=== PATIENT | female | born 1955 | race Caucasian/White ===

== ENCOUNTER 2019-10-02 15:26 | Emergency (ER) | payer BC, SELFPAY ==
--- NOTE | ~2019-10-02 | XR_ITS ---
XR finger 5th RT min 2V 10/02/2019 16:13 INDICATION: Right fifth finger pain PROCEDURE: 5 views right fifth finger COMPARISON: No prior studies for comparison. FINDINGS: Fracture, dislocation or subluxation is not identified. There is mild polyarticular osteoar thritis of the interphalangeal joints. There is healed fifth metacarpal fracture. The soft tissues ap pear within normal limits. No foreign bodies are identified. IMPRESSION: 1: NO ACUTE BONE OR JOINT ABNORMALITY IDENTIFIED. Reviewed, dictated and finalized at location A. R WRAPPER
[2019-10-02 15:35] VITALS: BP 219/86; PULSE 83; RESP 18; TEMP 36.6; O2SAT 99
[2019-10-02 15:48] VITALS: BP 196/108
--- NOTE | 2019-10-02 16:02 | ED.UPPEXIN ---
HPI - Extremity Injury (Upper) General Chief Complaint: Extremity Injury, Upper Stated Complaint: R FINGER INJURY Time Seen by Provider: 10/02/19 15:55 Source: patient and RN notes reviewed Mode of arrival: ambulatory Limitations: no limitations History of Present Illness HPI narrative: Patient presents today complaining of redness, swelling, and pain to the right fifth finger x1 month. States that she had a mild crush injury between 2 logs prior to onset of symptoms, but this injury did not cause a break in the skin. Denies numbness or tingling in the finger. Denies pain at rest, but this slightly increases with movement or palpation. She has been occasionally taking ibuprofen for symptoms. Patient's blood pressure is quite elevated upon arrival. She denies hx of HTN. Denies any symptoms to include chest pain, shortness of breath, dizziness, lightheadedness, headache, vision changes. MD complaint: injury to: right and finger Related Data Allergies Allergy/AdvReac Type Severity Reaction Status Date / Time No Known Allergies Allergy Mild Verified 10/02/19 15:43 Review of Systems Review of Systems: Narrative: CONSTITUTIONAL: Denies body aches, fever, chills, or sweats. EYES: Denies visual changes, redness, or discharge. ENT: Denies rhinorrhea, congestion, sore throat, or otalgia. CARDIOVASCULAR: Denies chest pain, palpitations, or edema. RESPIRATORY: Denies cough or dyspnea. GASTROINTESTINAL: Denies abdominal pain, nausea, vomiting, or diarrhea. GENITOURINARY: Denies dysuria or hematuria. SKIN: Denies rash, itching, or wounds. MUSCULOSKELETAL: Denies back pain, or myalgia.+ Right fifth finger swelling, redness, pain NEUROLOGIC: Denies headache, numbness, tingling, or weakness. PSYCH: Denies depression or anxiety. PMFSH Comments At time of signature, I have reviewed and agree with nursing past medical, surgical, social and family history unless otherwise noted. Please see nursing chart for further information. There is no relevant family history pertinent to the presenting complaint Exam Narrative: Exam Narrative: GENERAL: Well-appearing, well-nourished, and in no acute distress. HEAD: Normocephalic, atraumatic. EYES: EOMI. No redness or drainage. Conjunctivae normal. ENT: Mucous membranes pink and moist. NECK: Normal AROM. CHEST: No respiratory distress. EXTREMITIES: Right fifth finger: Mild erythema and edema to the PIP with mild tenderness to palpation. Full AROM. Distal sensation intact. Capillary refill normal. Remainder of finger is nontender without signs of infection. Skin appears normal. SKIN: Warm, dry, no rash. NEURO: No focal deficits. Alert and oriented x3. Gait steady. PSYCH: Normal affect. No signs of depression or anxiety. Course Course Emergency Course: 1631-x-ray results discussed with patient. I manually rechecked patient's blood pressure in her right arm. Reading was 214/100. This is the third severely elevated blood pressure reading patient has had since her arrival here today. She continues to deny any symptoms to include headache, vision changes, dizziness, lightheadedness, nausea or vomiting. I have discussed with patient that her blood pressure is dangerously high and could result in heart attack or stroke and have recommended that she go to the ER immediately for further evaluation. Patient has declined transfer. She will sign AMA paperwork. She does not seem to be under the influence of drugs or alcohol and is able to make her own decisions. She understands that by leaving without further evaluation she could have symptoms at home up to and including . Vital Signs Vital signs: Vital Signs Temperature 97.9 F 10/02/19 15:35 Pulse Rate 83 10/02/19 15:35 Respiratory Rate 18 10/02/19 15:35 Blood Pressure 219/86 H 10/02/19 15:35 Pulse Oximetry 99 10/02/19 15:35 Temperature 97.9 F 10/02/19 15:35 Pulse Rate 83 10/02/19 15:35 Respiratory Rate 18
--- NOTE | 2019-10-02 16:33 | PC.NURSE ---
after BP manual re-check by Pinky Ramos US MARKETING DIRECTOR--s-BP 214/104--she advised pt she needs to go to ED--pt refuses stating she has no symptom and will not go.
--- NOTE | 2019-10-02 16:42 | PC.NURSE ---
AMA form signed by pt as requested by Pinky Ramos NP for refusing to go to ED for BP work-up
== END 2019-10-02 16:39 | disposition left against medical advice (07) ==
PROVIDERS: Emergency Provider Nurse Practitioner; PCP Nurse Practitioner
DX: L03.011 Cellulitis of right finger (principal); R03.0 Elevated blood-pressure reading, without diagnosis of hypertension
CPT/HCPCS: 73140; 99203; G0463

== ENCOUNTER → 2019-11-14 18:02 | Outpatient (CLI) | payer BC, SELFPAY ==
--- NOTE | ~2019-11-14 | XR_ITS ---
XR finger 5th RT min 2V 11/14/2019 18:28 Indication: Osteomyelitis. AP joint Procedure: 4 views right fifth finger Comparison: 10/02/2019 Findings: There is mild osteoarthritis of the fifth PIP joint. Mild soft tissue swelling. No acute fr acture, subluxation or erosive change. No foreign bodies. Mild degenerative changes of the fifth DIP joint. Impression: 1: No acute bone or joint abnormality. No evidence for osteomyelitis or significant interval change. If there is concern for osteomyelitis, correlation with MRI is recommended. Reviewed, dictated and finalized at location A. Impression: 1: No acute bone or joint abnormality. No evidence for osteomyelitis or signifi cant interval change. If there is concern for osteomyelitis, correlation with M RI is recommended.
== END ==
PROVIDERS: PCP Nurse Practitioner; Visit Provider Plastic Surgery
DX: M86.141 Other acute osteomyelitis, right hand (principal)
CPT/HCPCS: 73140

== ENCOUNTER → 2020-03-10 12:18 | Outpatient (CLI) | payer BC, SELFPAY ==
--- NOTE | ~2020-03-10 | MM_ITS ---
EXAMINATION: MM screening [facility] BI w vaishali HISTORY: Screening mammogram, family history of breast cancer in her sister. TECHNIQUE: Craniocaudal and mediolateral oblique 3-D tomosynthesis images were obtained and synthetic 2-D images were generated. CAD analysis was submitted and interpreted. COMPARISON: 05/28/2009, 04/05/2005 BREAST PARENCHYMAL COMPOSITION: There are scattered areas of fibroglandular density. FINDINGS: RIGHT BREAST: There is no evidence of suspicious mass, calcification, or architectural distortion to suggest malignancy. There has been no significant interval change. LEFT BREAST: An asymmetry is present in the middle third of the breast 7 cm deep to, and in line with , the nipple on the craniocaudal view. IMPRESSION: 1. Left breast asymmetry on the craniocaudal view. 2. Additional mammographic views and possible breast ultrasound are recommended. BI-RADS Category 0: Incomplete: Needs additional imaging evaluation. Reviewed, dictated and finalized at location A. IMPRESSION: 1. Left breast asymmetry on the craniocaudal view. 2. Additional mammographic views and possible breast ultrasound are recommended . BI-RADS Category 0: Incomplete: Needs additional imaging evaluation.
== END ==
PROVIDERS: PCP Internal Medicine; Visit Provider Internal Medicine
DX: Z12.31 Encounter for screening mammogram for malignant neoplasm of breast (principal); R92.8 Other abnormal and inconclusive findings on diagnostic imaging of breast
CPT/HCPCS: 77063; 77067

== ENCOUNTER → 2020-03-21 14:26 | Outpatient (CLI) | payer BC, SELFPAY ==
--- NOTE | ~2020-03-21 | MM_ITS ---
EXAMINATION: MM diagnostic mammo unilat LT HISTORY: Palpable TECHNIQUE: Additional 3-D tomosynthesis images of the left breast were performed and synthetic 2-D im ages were generated. CAD analysis was submitted and interpreted. COMPARISON: 03/10/2020, 05/28/2019, 04/05/2005 FINDINGS: No persistent asymmetry is identified with spot compression of the left breast. There is no evidence of suspicious mass, calcification, or architectural distortion to suggest malignancy. IMPRESSION: 1. No mammographic evidence of malignancy. 2. Recommend routine screening mammography in one year. BI-RADS Category 1: Negative Reviewed, dictated and finalized at location A.
== END ==
PROVIDERS: PCP Internal Medicine; Visit Provider Internal Medicine
DX: R92.8 Other abnormal and inconclusive findings on diagnostic imaging of breast (principal)
CPT/HCPCS: 77065

== ENCOUNTER 2020-11-14 14:21 | Inpatient (IN) | payer BC, SELFPAY ==
[2020-11-14] VITALS (21 sets, daily range): BP systolic 139–187; BP diastolic 61–76; PULSE 81–90; RESP 16–18; TEMP 36.5–36.6; O2SAT 96–100
--- NOTE | ~2020-11-14 | XR_ITS ---
EXAMINATION: XR finger 3rd RT min 2V DATE: 11/14/2020 15:33 INDICATION: Right hand third digit swelling. TECHNIQUE: 4 views of right hand third digit were obtained. COMPARISON: None. FINDINGS: Bone alignment is normal. No fracture. There is mild osteoarthritis of third proximal inter phalangeal joint and moderate osteoarthritis of third distal interphalangeal joint. There is soft tis shruthi swelling of the third digit. IMPRESSION: 1. Polyarticular osteoarthritis. Reviewed, dictated and finalized at location A. CLOSURE SPECIALIST
[2020-11-14 14:51] LABS: Basophils Percent Auto 0.2 % (0.2-1.2); Eosinophils Percent Auto 0.3 % (0-4.4); Hematocrit 41.9 % (37.0-47.0); Hemoglobin 13.8 g/dL (12.0-15.0); Immature Granulocyte Absolute 0.19 K/mm3 (0.00-0.031); Immature Granulocyte Percent A 1.9 % (0-0.5); Lymphocytes Absolute Auto 1.58 K/mm3 (0.9-3.2); Lymphocytes Percent Auto 15.7 % (18.3-44.2); Mean Corpuscular HGB Conc 32.9 g/dl (32-36); Mean Corpuscular Hemoglobin 28.9 pg (26-34); Mean Corpuscular Volume 87.7 fl (80-100); Mean Platelet Volume 11.5 fl (7.4-10.4); Monocytes Absolute Auto 4.5 K/mm3 (0.1-0.6); Monocytes Percent Auto 44.7 % (2.6-8.5); Neutrophils Absolute Auto 3.7 K/mm3 (1.3-6.7); Neutrophils Percent Auto 37.2 % (45.5-73.1); Platelet Count Result 156 k/mm3 (150-375); Red Blood Count 4.78 M/mm3 (4.2-5.4); Red Cell Distribution Width 13.5 % (11.5-14.5); White Blood Count 10.1 K/mm3 (4.5-10.0)
[2020-11-14 15:05] LABS: Anion Gap 7 mmol/L (8-16); Blood Urea Nitrogen 16 mg/dL (7-17); CRP 6.2 mg/dL (<1.0); Calcium 9.8 mg/dL (8.4-10.2); Carbon Dioxide 27 mmol/L (22-30); Chloride 106 mmol/L (98-107); Estimated CRCL calculation 53 ml/min; Estimated Glomerular Filt Rate > 60; Glucose 110 mg/dL (65-105); Potassium 3.5 mmol/L (3.4-5.0); Sodium 140 mmol/L (137-145)
--- NOTE | 2020-11-14 15:27 | PC.NURSE ---
xray at bedside.
[2020-11-14] MEDS: CLINDAMYCIN 900 MG/D5W 50 ML 900 MG/50 ML PIGGYBACK 50 MG IVPB (15:32)
[2020-11-14] MEDS: MORPHINE SULFATE (*CRX) 4 MG/ML INJ IV PUSH ×2 (15:32→22:03)
[2020-11-14] MEDS: SODIUM CHLORIDE 0.9% IV 1,000 ML 999 ML IV CONT (15:32)
[2020-11-14] MEDS: LIDOCAINE HCL 1% LOCAL INJ 20 ML VIAL (16:13)
--- NOTE | 2020-11-14 16:15 | ED.GENADULT ---
HPI - General Adult General Chief complaint: Skin/Abscess/Foreign Body Stated complaint: right middle finger infection Time Seen by Provider: 11/14/20 14:33 Source: patient Mode of arrival: ambulatory Limitations: no limitations History of Present Illness HPI narrative: Patient is 65-year-old female who presents with red tender swollen right middle digit that began Tuesday and is quickly worsened with redness down to the PIP joint. Patient was seen Tuesday at an urgent care given IV antibiotics and has been taking these with worsening now has swelling on the dorsal surface. Patient denies injury trauma similar occurrence or any fever chills nausea vomiting patient now is unable to fully flex the finger and it is primarily held in extension Related Data Home Medications Medication Instructions Recorded Confirmed multivitamin 1 tablet PO DAILY 10/05/19 10/30/20 omega-3 fatty acids 1,000 mg 1,000 mg PO DAILY 10/05/19 10/30/20 capsule amino acid-hydrolyzed ea PO 10/30/20 10/30/20 collagen-whey 15 gram-100 kcal/30 mL oral liquid famotidine 20 mg tablet 20 mg PO BID tablet 10/30/20 10/30/20 Allergies Allergy/AdvReac Type Severity Reaction Status Date / Time sulfamethoxazole Allergy Intermediate Rash Verified 11/14/20 14:28 [From Bactrim] trimethoprim [From Bactrim] Allergy Intermediate Rash Verified 11/14/20 14:28 Review of Systems Review of Systems: All systems reviewed & are unremarkable except as noted in HPI and below PMFSH Past Medical History Medical History (Updated 11/14/20 @ 16:19 by Alberto King PA-C) Bilateral carpal tunnel syndrome Social History Social History Smoking status: Former smoker Substance use: never Additional occupation/education comments: [employer] Gender identity (if verbalized by the patient): Male Exam Narrative: Exam Narrative: GENERAL: Well-appearing, well-nourished, and in no acute distress. HEAD: Normocephalic, atraumatic. EYES: PERRLA and EOMI. ENT: Nares clear, no rhinorrhea or epistaxis. Mucous membranes moist. CHEST: Clear to auscultation. No respiratory distress. No wheezes rales or rhonchi HEART: Regular rate and rhythm. No murmur heard. Normal peripheral pulses. EXTREMITIES: Patient with circumferential redness and swelling to the PIP joint involving the right middle phalanx on the dorsal surface just proximal of the nail fold there is a purulent fluctuant lesion draining pus SKIN: Warm, dry, no rash. NEURO: No focal deficits. Alert and oriented x3. Neurovascularly intact PSYCH: Normal mood and affect. Course Course Emergency Course: Patient evaluated in the emergency department had I&D of the abscess of the finger placed in hospital IV antibiotics will be initiated and maintained patient will also be seen by hand surgeon Consultations Consultation #1: Discussed case with hand surgeon Dr. Greenberg who will consult on the patient Date: 11/14/20 Time: 17:26 Consultation #2: Discussed case with Eve clark hospitalist who is agreed to accept the patient Date: 11/14/20 Time: 17:27 Vital Signs Vital signs: Vital Signs Temperature 97.7 F 11/14/20 14:24 Pulse Rate 90 11/14/20 14:24 Respiratory Rate 18 11/14/20 14:24 Blood Pressure 187/67 H 11/14/20 14:24 Pulse Oximetry 100 11/14/20 14:24 Temperature 97.7 F 11/14/20 14:24 Pulse Rate 83 11/14/20 15:48 Respiratory Rate 18 11/14/20 17:18 Blood Pressure 166/75 H 11/14/20 16:46 Pulse Oximetry 96 11/14/20 17:18 Procedures Abscess I/D upper extremity: Date of Incision: 11/14/20 Time of Incision: 16:18 Side (if applicable): right Local Anesthetic: lidocaine 1% (Digital block) Technique: incised with #11 blade Irrigation: Yes Packing used?: iodoform I&D Results: Pus and Blood Complications: pain Abcess I&D Additional Comments: Neurovascular
[2020-11-14] MEDS: HYDROcodone/acetaminophen (*CRX) 5-325 MG TABLET 1 TAB PO (17:27)
--- NOTE | 2020-11-14 18:55 | ADMGEN ---
This patient, Zoey Shaw, was admitted to 3 Med Surg Room 303-01. Patient/family oriented to hospital policies and general routines including ID bracelet, bed and alarms, visiting hours, pain management, procedures, bathroom and other care routines, personal items, smoking policy, room service/diet, and visiting hours. Information on how to activate the Rapid Response Team has been discussed. Patient/Family are encouraged to report perceived risks to care and to ask questions if they do not understand what they are told or what they should do.
--- NOTE | 2020-11-14 19:13 | WPDCN ---
Assessment and Plan Assessment and plan (1) Cellulitis and abscess of finger, unspecified: Onset Date: ~11/10/20 Code(s): L03.019 - Cellulitis of unspecified finger; L02.519 - Cutaneous abscess of unspecified hand Status: Acute Assessment and Plan: Cellulitis of dorsal distal phalanx of right index finger. Etiol unknown. Moisture in a rubber work glove might be a cause. Arachnid bite perhaps. Did not respond to Clinda and Mupirocin early on. Has been at least partially drained. Additional Plan Continue IV Clinda. Monitor culture. Will make NPO after MN for possible further I&D. Elevate and light gauze dressing. I will see again in the morning. HPI Data of Consult Date/Time: 11/14/20 19:13 Requesting Physician: Blayne Cox MD Primary Care Provider: Rishabh Morales DO Consult Narrative Narrative: Zoey Shaw is a 65 year old female In good health until her finger became rapidly red and swollen between Tuesday and Tuesday this week. Seemed to have begun at the site of a wart looking skin blemish that had been present for 2 weeks. She reports that she did not manipulate that, but that it fell off and the next day the finger became red. She sought help with her primary care but could not get in to see him. [facility] was given IV Clinda and was started on oral Clinda and soaks and Mupirocin tid. The dorsal distal phalanx ballooned up and she came to [facility] ED today. She has had x-rays: No skeletal abnormality or FB. Cultures : pending. I&D with placement of wick. Some pus was drained. WBC is slightly elevated. Admitted on IV Clindamycin. 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 Wears rubber gloves often. No pets. No apparent history of paronychia. [facility] Past Medical History Medical History (Updated 11/14/20 @ 19:39 by Magno Greenberg MD) Bilateral carpal tunnel syndrome Family History Family History (Updated 11/14/20 @ 18:58 by Guilherme Cormier RN) Father Hypothyroid Lung cancer Stomach ulcer Mother Hypothyroid Social History Social History Smoking packs per day: 0.5 Smoking cigarettes per day: 10.0 Smoking status: Former smoker Tobacco type: cigarettes Smoking end date: 09/19/83 Alcohol intake: never Substance use: never Substance use type: does not use Additional occupation/education comments: [employer] Gender identity (if verbalized by the patient): Female Spiritual care concerns: No Meds Home Medications and Allergies Home Medications Medication Instructions Recorded Confirmed Type multivitamin 1 tablet PO DAILY 10/05/19 11/14/20 History omega-3 fatty acids 1,000 mg 1,000 mg PO DAILY 10/05/19 11/14/20 History capsule celecoxib 200 mg capsule See Rx Instructions .ROUTE 05/29/20 11/14/20 Rx .COMPLEX #60 cap amlodipine 10 mg tablet See Rx Instructions .ROUTE 10/17/20 11/14/20 Rx .COMPLEX #90 tablet amino acid-hydrolyzed 1 ea PO DAILY 10/30/20 11/14/20 History collagen-whey 15 gram-100 kcal/30 mL oral liquid famotidine 20 mg tablet 20 mg PO BID tablet 10/30/20 11/14/20 History rosuvastatin 10 mg tablet 10 mg PO DAILY #30 tablet 10/30/20 11/14/20 Rx Allergies Allergy/AdvReac Type Severity Reaction Status Date / Time sulfamethoxazole Allergy Intermediate Rash Verified 11/14/20 18:52 [From Bactrim] trimethoprim [From Bactrim] Allergy Intermediate Rash Verified 11/14/20 18:52 Vital Signs Vital Signs - 24 hr 11/14/20 14:24 11/14/20 15:36 11/14/20 15:48 Temperature 36.5 C Pulse Rate 90 83 Respiratory Rate 18 16 Blood Pressure 187/67 H 150/67 H Pulse Oximetry 100 98 97 11/14/20 15:53 11/14/20 16:00 11/14/20 16:01 Temperature Pulse Rate Respiratory Rate Blood Pressure 144/61 H Pulse Oximetry 99 97 97 11/14/20 16:22 11/14/20 16:39 11/14/20 16:45 Temperature Pulse
[2020-11-14] MEDS: LACTATED RINGERS 1,000 ML 125 ML IV CONT (19:46)
[2020-11-14] MEDS: CLINDAMYCIN 600 MG/NS 50 ML 600 MG/50 ML PIGGYBACK 100 MG IVPB (20:40)
--- NOTE | 2020-11-14 20:55 | PM.IMHP ---
H&P: HPI History of Present Illness Date/Time: 11/14/20 20:55 this is a 65-year-old female patient who discovered a blister are she calls it a wart that started a couple weeks ago. She said she did not get bit by a spider have any injury. She told me she did not pop the blister or manipulated in any way. She stated that it popped on its own and then developed a blister. She stated when it popped open she was cleaning it daily and putting triple antibiotic ointment on it. She did have a scab on it and then it fell off and it became reddened and tender she had work sitting redness on the PIPs joint. The patient went to urgent care this past Tuesday where she was given IV fluids and IV antibiotics. She then was given oral clindamycin and Bactroban ointment. The urgent care told the patient if her finger had no improvement by Tuesday then she needed to come to the emergency room. The patient attempted to go to her primary care doctor's office this morning and was told that they did not have any appointments available for her. So the patient went to work and then she called the urgent care back to let them know that the finger did not look any better. They instructed her to go to the emergency room. The patient had an x-ray of right hand which was read as polyarticular osteoarthritis. The right middle finger abscess was drained in the emergency room under local anesthesia using a digital block.wound cultures were obtained. Dr. Greenberg had been consulted and has already seen the patient. She was started on IV fluids, IV Tylenol, IV morphine, IV clindamycin and given [place]. Dr. Greenberg suggested that the patient continue with clindamycin. The right middle finger was wrapped in gauze.. Blood pressure elevated 187 / 67. Patient was admitted to inpatient status on the date of service of 11/14/2020. Chief Complaint: Right hand infection Review of Systems Review of Systems: All systems reviewed & are unremarkable except as noted in HPI and below Constitutional: Constitutional: Reports as per HPI and Reports no additional constitutional complaints Eyes: Eyes: Reports as per HPI and Reports no additional eye complaints ENT: Reports system reviewed and no additional complaints, except as documented and Reports Normal hearing present Cardiovascular: Cardiovascular: Reports no additional cardiovascular complaints Respiratory: Respiratory: Reports no additional respiratory complaints and Reports no additional respiratory complaints Gastrointestinal: Gastrointestinal: Reports as per HPI and Reports no additional gastrointestinal complaints Musculoskeletal: Musculoskeletal: Reports no additional musculoskeletal complaints Integumentary/Breasts: Skin/Breast: Reports system reviewed and no additional complaints, except as docu and Reports as per HPI Neurologic: Reports system reviewed and no additional complaints, except as documented, Reports as per HPI and Reports Normal hearing present Psychiatric: Psychiatric: Reports no additional psychiatric complaints and Reports as per HPI Endocrine: Endocrine: Reports no additional endocrine complaints Hematologic/Lymphatic: Hematologic/Lymphatic: Reports no additional hematologic/lymphatic complaints Allergic/Immunologic: Allergic/Immunologic: Reports no additional allergic/immunologic complaints [facility] Past Medical History Medical History (Updated 11/14/20 @ 21:20 by Eve Kaur NP) Bilateral carpal tunnel syndrome Hyperlipidemia Hypertension 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
[2020-11-14] MEDS: CELECOXIB 200 MG CAPSULE BY MOUTH (22:12)
[2020-11-14] MEDS: amLODIPine BESYLATE 5 MG TABLET BY MOUTH (22:12)
[2020-11-14] MEDS: FAMOTIDINE 20 MG TABLET PO (22:12)
[2020-11-15] VITALS (10 sets, daily range): BP systolic 128–177; BP diastolic 61–75; PULSE 69–84; RESP 10–18; TEMP 36.4; O2SAT 92–98
[2020-11-15] MEDS: LACTATED RINGERS 1,000 ML 125 ML IV CONT (04:34)
[2020-11-15] MEDS: MORPHINE SULFATE (*CRX) 4 MG/ML INJ IV PUSH (05:35)
[2020-11-15] MEDS: CLINDAMYCIN 600 MG/NS 50 ML 600 MG/50 ML PIGGYBACK 100 MG IVPB ×3 (05:35→20:05)
[2020-11-15 06:58] LABS: Basophils Percent Auto 0.3 % (0.2-1.2); Eosinophils Percent Auto 0.4 % (0-4.4); Hematocrit 33.8 % (37.0-47.0); Hemoglobin 11.1 g/dL (12.0-15.0); Immature Granulocyte Absolute 0.07 K/mm3 (0.00-0.031); Lymphocytes Absolute Auto 1.56 K/mm3 (0.9-3.2); Lymphocytes Percent Auto 22.6 % (18.3-44.2); Mean Corpuscular HGB Conc 32.8 g/dl (32-36); Mean Corpuscular Hemoglobin 28.5 pg (26-34); Mean Corpuscular Volume 86.7 fl (80-100); Monocytes Absolute Auto 2.8 K/mm3 (0.1-0.6); Monocytes Percent Auto 40.7 % (2.6-8.5); Neutrophils Absolute Auto 2.4 K/mm3 (1.3-6.7); Platelet Count Result 129 k/mm3 (150-375); Red Cell Distribution Width 13.6 % (11.5-14.5); White Blood Count 6.9 K/mm3 (4.5-10.0)
[2020-11-15 07:03] LABS: Anion Gap 2 mmol/L (8-16); Blood Urea Nitrogen 12 mg/dL (7-17); Calcium 8.1 mg/dL (8.4-10.2); Carbon Dioxide 28 mmol/L (22-30); Chloride 108 mmol/L (98-107); Estimated CRCL calculation 60 ml/min; Estimated Glomerular Filt Rate > 60; Glucose 96 mg/dL (65-105); Sodium 138 mmol/L (137-145)
--- NOTE | 2020-11-15 08:30 | WPDPN ---
Progress Note: A&P Assessment and Plan (1) Cellulitis and abscess of finger, unspecified: Onset Date: ~11/10/20 Code(s): L03.019 - Cellulitis of unspecified finger; L02.519 - Cutaneous abscess of unspecified hand Status: Acute Exam Narrative: Exam Narrative: Right middle finger remains very riya and edematous. No purulent drainage. Wick removed from area of the nail fold. More tinder on palmar surface of distal phalanx and to lateral compression of the dip joint. Minimal overall improvement on IV Clindamycin. Gram stain with no organisms seen. culture pending. Objective Data Vital Signs Vital Signs: Vital Signs - 24 hr 11/14/20 14:24 11/14/20 15:36 11/14/20 15:48 Temperature 36.5 C Pulse Rate 90 83 Respiratory Rate 18 16 Blood Pressure 187/67 H 150/67 H Pulse Oximetry 100 98 97 11/14/20 15:53 11/14/20 16:00 11/14/20 16:01 Temperature Pulse Rate Respiratory Rate Blood Pressure 144/61 H Pulse Oximetry 99 97 97 11/14/20 16:22 11/14/20 16:39 11/14/20 16:45 Temperature Pulse Rate Respiratory Rate Blood Pressure Pulse Oximetry 96 99 97 11/14/20 16:46 11/14/20 17:13 11/14/20 17:18 Temperature Pulse Rate Respiratory Rate 18 Blood Pressure 166/75 H Pulse Oximetry 97 97 96 11/14/20 17:38 11/14/20 17:43 11/14/20 17:45 Temperature Pulse Rate Respiratory Rate Blood Pressure 144/69 H Pulse Oximetry 97 97 97 11/14/20 17:46 11/14/20 18:00 11/14/20 18:01 Temperature Pulse Rate 86 Respiratory Rate 16 Blood Pressure 148/72 H 139/63 Pulse Oximetry 97 96 97 11/14/20 18:22 11/14/20 18:35 11/14/20 22:00 Temperature 36.5 C 36.6 C Pulse Rate 81 83 82 Respiratory Rate 16 18 18 Blood Pressure 154/63 H 154/76 H Pulse Oximetry 97 98 96 11/15/20 05:53 Temperature 36.4 C L Pulse Rate 78 Respiratory Rate 16 Blood Pressure 166/62 H Pulse Oximetry 97 Intake/Output Intake/Output: Intake & Output 11/12/20 11/13/20 11/14/20 11/15/20 23:59 23:59 23:59 23:59 Intake Total 1320 1300 Output Total 600 Balance 1320 700 Meds/Results Medications: Active Medications Generic Name Dose Route Start Last Admin Trade Name Freq PRN Reason Stop Dose Admin Amlodipine Besylate 5 mg 11/14/20 21:55 11/14/20 22:12 Amlodipine Besylate 5 Mg Tablet BY MOUTH 5 mg HS JUS Administration Celecoxib 200 mg 11/14/20 21:55 11/14/20 22:12 Celecoxib 200 Mg Capsule BY MOUTH 200 mg BID JUS Administration Famotidine 20 mg 11/14/20 21:40 11/14/20 22:12 Famotidine 20 Mg Tablet PO 20 mg BID JUS Administration Fish Oil 1 gm 11/15/20 09:00 Newell 3 Polyunsat Fatty Acids 1 Gm Cap PO DAILY [facility] Acetaminophen 1,000 mg in 100 mls @ 400 mls/hr 11/14/20 17:32 Ofirmev 1,000 Mg Ivpb IVPB 11/15/20 17:33 Q6H PRN Mild Pain (1-3) or Fever Lactated Ringer's 1,000 mls @ 125 mls/hr 11/14/20 17:35 11/15/20 04:34 Lr - Lactated Ringers Iv IV CONT 125 mls/hr .Q8H JUS Administration Clindamycin/Sodium Chloride 600 mg in 50 mls @ 100 mls/hr 11/14/20 22:00 11/15/20 05:35 Clindamycin 600 Mg/Ns 50 Ml IVPB 100 mls/hr Q8H JUS Administration Morphine Sulfate 4 mg 11/14/20 17:32 11/15/20 05:35 Morphine Sulfate (*Crx) 4 Mg/Ml Inj IV PUSH 4 mg Q2H PRN Administration Pain Rated 7-10 Multivitamins Therapeutic 1 tablet 11/15/20 09:00 Multivitamins Therapeutic Tab (*Bkc) PO DAILY [facility] Ondansetron HCl 4 mg 11/14/20 17:32 Ondansetron Inj 4 Mg/2 Ml Vial IV PUSH Q4H PRN Nausea Rosuvastatin Calcium 10 mg 11/15/20 09:00 Rosuvastatin 10 Mg Tablet PO DAILY [facility] Radiology Results: ITS Impressions Finger X-Ray 11/14/20 15:37 IMPRESSION: 1. Polyarticular osteoarthritis. Labs Labs: Laboratory Results - last 24 hr 11/14/20 11/14/20 11/15/20 14:44 14:44 06:11 WBC 10.1 H 6.9 RBC 4.78 3.90 L Hgb 13.8 11.1 L
--- NOTE | 2020-11-15 08:49 | WPDANESEPP ---
Anes - Eval Pre Procedure Date/Time: 11/15/20 08:49 Pre Op Diagnosis: Finger abscess cellulitis Patient Data Age: 65 Gender: F Height: 1.65 m Weight: 73 kg Last Vital Signs Temp 36.4 C L 11/15/20 05:53 Pulse 78 11/15/20 05:53 Resp 16 11/15/20 05:53 BP 166/62 H 11/15/20 05:53 Pulse Ox 97 11/15/20 05:53 Allergies Allergy/AdvReac Type Severity Reaction Status Date / Time sulfamethoxazole Allergy Intermediate Rash Verified 11/14/20 18:52 [From Bactrim] trimethoprim [From Bactrim] Allergy Intermediate Rash Verified 11/14/20 18:52 Home Medications Medication Instructions Recorded Confirmed Type multivitamin 1 tablet PO DAILY 10/05/19 11/14/20 History omega-3 fatty acids 1,000 mg 1,000 mg PO DAILY 10/05/19 11/14/20 History capsule celecoxib 200 mg capsule See Rx Instructions .ROUTE 05/29/20 11/14/20 Rx .COMPLEX #60 cap amlodipine 10 mg tablet See Rx Instructions .ROUTE 10/17/20 11/14/20 Rx .COMPLEX #90 tablet amino acid-hydrolyzed 1 ea PO DAILY 10/30/20 11/14/20 History collagen-whey 15 gram-100 kcal/30 mL oral liquid famotidine 20 mg tablet 20 mg PO BID tablet 10/30/20 11/14/20 History rosuvastatin 10 mg tablet 10 mg PO DAILY #30 tablet 10/30/20 11/14/20 Rx Laboratory Tests 11/14/20 11/14/20 11/15/20 14:44 14:44 06:11 WBC 10.1 K/mm3 H K/mm3 6.9 K/mm3 K/mm3 (4.5-10.0) (4.5-10.0) RBC 4.78 M/mm3 M/mm3 3.90 M/mm3 L M/mm3 (4.2-5.4) (4.2-5.4) Hgb 13.8 g/dL g/dL 11.1 g/dL L g/dL (12.0-15.0) (12.0-15.0) Hct 41.9 % % 33.8 % L % (37.0-47.0) (37.0-47.0) MCV 87.7 fl fl 86.7 fl fl (80-100) (80-100) MCH 28.9 pg pg 28.5 pg pg (26-34) (26-34) MCHC 32.9 g/dl g/dl 32.8 g/dl g/dl (32-36) (32-36) RDW 13.5 % % 13.6 % % (11.5-14.5) (11.5-14.5) Plt Count 156 k/mm3 k/mm3 129 k/mm3 L k/mm3 (150-375) (150-375) MPV 11.5 fl H fl 12.0 fl H fl (7.4-10.4) (7.4-10.4) Immature Gran % (Auto) 1.9 % H % 1.0 % H % (0-0.5) (0-0.5) Neut % (Auto) 37.2 % L % 35.0 % L % (45.5-73.1) (45.5-73.1) Lymph % (Auto) 15.7 % L % 22.6 % % (18.3-44.2) (18.3-44.2) [place] % (Auto) 44.7 % H % 40.7 % H % (2.6-8.5) (2.6-8.5) Eos % (Auto) 0.3 % % 0.4 % % (0-4.4) (0-4.4) Baso % (Auto) 0.2 % % 0.3 % % (0.2-1.2) (0.2-1.2) Lymph # (Auto) 1.58 K/mm3 K/mm3 1.56 K/mm3 K/mm3 (0.9-3.2) (0.9-3.2) [place] # (Auto) 4.5 K/mm3 H K/mm3 2.8 K/mm3 H K/mm3 (0.1-0.6) (0.1-0.6) Eos # (Auto) 0.0 K/mm3 K/mm3 0.0 K/mm3 K/mm3 (0-0.3) (0-0.3) Baso # (Auto) 0.0 K/mm3 K/mm3 0.0 K/mm3 K/mm3 (0.0-0.1) (0.0-0.1) Abs Immat Gran (auto) 0.19 K/mm3 H K/mm3 0.07 K/mm3 H K/mm3 (0.00-0.031) (0.00-0.031) Absolute Neuts (auto) 3.7 K/mm3 K/mm3 2.4 K/mm3 K/mm3 (1.3-6.7) (1.3-6.7) Absolute Nucleated RBC 0.0 K/mm3 K/mm3 0.0 K/mm3 K/mm3 (0.0-0.012) (0.0-0.012) Nucleated RBC % 0.0 % % 0.0 % % (0.0-0.2) (0.0-0.2) Sodium 140 mmol/L mmol/L (137-145) Potassium 3.5 mmol/L mmol/L (3.4-5.0) Chloride 106 mmol/L mmol/L (98-107) Carbon Dioxide 27 mmol/L mmol/L (22-30) Anion Gap 7 mmol/L L mmol/L (8-16) BUN 16 mg/dL mg/dL (7-17) Creatinine 0.80 mg/dL mg/dL (0.7-1.0) Estim Creat Clear Calc 53 ml/min ml/min Estimated GFR > 60 (59 - ) Glucose 110 mg/dL H mg/dL (65-105) Calcium 9.8 mg/dL mg/dL (8.4-10.2) C-Reactive Protein 6.2 mg/dL H mg/dL (<1.0) 11/15/20 06:11 WBC RBC Hgb Hct MCV MCH MCHC RDW Plt Count MPV Immature Gran % (Auto) Neut % (Auto) Lymph % (Auto) [place] % (Auto) Eos % (Auto) Baso % (Auto) Lymph # (Auto) [place] # (Auto) Eos # (Auto) Baso # (Aut
[2020-11-15] MEDS: LACTATED RINGERS 1,000 ML 30 ML IV CONT (09:30)
--- NOTE | 2020-11-15 09:47 | WPDANESEPPF ---
Anes - Initial Pre Proc Eval Procedure: Operation Date: 11/15/20 09:30 Proposed Procedures p I&D Debride Upper Extremity Hand(Right) - Magno Greenberg MD Date/Time: 11/15/20 09:47 Surgeon: Brandi Varela PA-C Pre Op Diagnosis: Finger abscess cellulitis Patient Data Age: 65 Gender: F Height: 5 ft 5 in Weight: 73 kg Last Vital Signs Temp 36.4 C L 11/15/20 05:53 Pulse 78 11/15/20 05:53 Resp 16 11/15/20 05:53 BP 166/62 H 11/15/20 05:53 Pulse Ox 96 11/15/20 09:07 Allergies Allergy/AdvReac Type Severity Reaction Status Date / Time sulfamethoxazole Allergy Intermediate Rash Verified 11/14/20 18:52 [From Bactrim] trimethoprim [From Bactrim] Allergy Intermediate Rash Verified 11/14/20 18:52 Home Medications Medication Instructions Recorded Confirmed Type multivitamin 1 tablet PO DAILY 10/05/19 11/14/20 History omega-3 fatty acids 1,000 mg 1,000 mg PO DAILY 10/05/19 11/14/20 History capsule celecoxib 200 mg capsule See Rx Instructions .ROUTE 05/29/20 11/14/20 Rx .COMPLEX #60 cap amlodipine 10 mg tablet See Rx Instructions .ROUTE 10/17/20 11/14/20 Rx .COMPLEX #90 tablet amino acid-hydrolyzed 1 ea PO DAILY 10/30/20 11/14/20 History collagen-whey 15 gram-100 kcal/30 mL oral liquid famotidine 20 mg tablet 20 mg PO BID tablet 10/30/20 11/14/20 History rosuvastatin 10 mg tablet 10 mg PO DAILY #30 tablet 10/30/20 11/14/20 Rx Laboratory Tests 11/14/20 11/14/20 11/15/20 14:44 14:44 06:11 WBC 10.1 K/mm3 H K/mm3 6.9 K/mm3 K/mm3 (4.5-10.0) (4.5-10.0) RBC 4.78 M/mm3 M/mm3 3.90 M/mm3 L M/mm3 (4.2-5.4) (4.2-5.4) Hgb 13.8 g/dL g/dL 11.1 g/dL L g/dL (12.0-15.0) (12.0-15.0) Hct 41.9 % % 33.8 % L % (37.0-47.0) (37.0-47.0) MCV 87.7 fl fl 86.7 fl fl (80-100) (80-100) MCH 28.9 pg pg 28.5 pg pg (26-34) (26-34) MCHC 32.9 g/dl g/dl 32.8 g/dl g/dl (32-36) (32-36) RDW 13.5 % % 13.6 % % (11.5-14.5) (11.5-14.5) Plt Count 156 k/mm3 k/mm3 129 k/mm3 L k/mm3 (150-375) (150-375) MPV 11.5 fl H fl 12.0 fl H fl (7.4-10.4) (7.4-10.4) Immature Gran % (Auto) 1.9 % H % 1.0 % H % (0-0.5) (0-0.5) Neut % (Auto) 37.2 % L % 35.0 % L % (45.5-73.1) (45.5-73.1) Lymph % (Auto) 15.7 % L % 22.6 % % (18.3-44.2) (18.3-44.2) [place] % (Auto) 44.7 % H % 40.7 % H % (2.6-8.5) (2.6-8.5) Eos % (Auto) 0.3 % % 0.4 % % (0-4.4) (0-4.4) Baso % (Auto) 0.2 % % 0.3 % % (0.2-1.2) (0.2-1.2) Lymph # (Auto) 1.58 K/mm3 K/mm3 1.56 K/mm3 K/mm3 (0.9-3.2) (0.9-3.2) [place] # (Auto) 4.5 K/mm3 H K/mm3 2.8 K/mm3 H K/mm3 (0.1-0.6) (0.1-0.6) Eos # (Auto) 0.0 K/mm3 K/mm3 0.0 K/mm3 K/mm3 (0-0.3) (0-0.3) Baso # (Auto) 0.0 K/mm3 K/mm3 0.0 K/mm3 K/mm3 (0.0-0.1) (0.0-0.1) Abs Immat Gran (auto) 0.19 K/mm3 H K/mm3 0.07 K/mm3 H K/mm3 (0.00-0.031) (0.00-0.031) Absolute Neuts (auto) 3.7 K/mm3 K/mm3 2.4 K/mm3 K/mm3 (1.3-6.7) (1.3-6.7) Absolute Nucleated RBC 0.0 K/mm3 K/mm3 0.0 K/mm3 K/mm3 (0.0-0.012) (0.0-0.012) Nucleated RBC % 0.0 % % 0.0 % % (0.0-0.2) (0.0-0.2) Sodium 140 mmol/L mmol/L (137-145) Potassium 3.5 mmol/L mmol/L (3.4-5.0) Chloride 106 mmol/L mmol/L (98-107) Carbon Dioxide 27 mmol/L mmol/L (22-30) Anion Gap 7 mmol/L L mmol/L (8-16) BUN 16 mg/dL mg/dL (7-17) Creatinine 0.80 mg/dL mg/dL (0.7-1.0) Estim Creat Clear Calc 53 ml/min ml/min Estimated GFR > 60 (59 - ) Glucose 110 mg/dL H mg/dL (65-105) Calcium 9.8 mg/dL mg/dL (8.4-10.2) C-Reactive Protein 6.2 mg/dL H mg/dL (<1.0) 11/15/20 06:11 WBC RBC Hgb Hct MCV MCH MCHC RDW Plt Count MPV Immature Gran % (Auto)
[2020-11-15] MEDS: LIDO 1%/EPINEPHRINE 1:100,000 50 ML VIAL 10 ML INFILTRATE (10:08)
[2020-11-15] MEDS: SILVERGEL (ELTA) 45 ML 1 APPLIC TOPICAL (10:22)
--- NOTE | 2020-11-15 11:13 | P.OPB_ITS ---
Procedure Note - Brief Procedure Note - Brief Date of procedure: 11/15/20 Pre-op diagnosis: Finger abscess cellulitis Post-op diagnosis: same Procedure performed: I&D right middle finger Anesthesia: GLMA Surgeon: Magno Greenberg MD Digital Media Planner: Deyanira Drains: No Packing: Yes Pathology: none sent Complications: No immediate complications Condition: stable Disposition: PACU
--- NOTE | 2020-11-15 11:16 | P.OP_ITS ---
Procedure Note - Detailed Date of procedure: 11/15/20 Pre-op diagnosis: Finger abscess cellulitis Post-op diagnosis: same Procedure performed: I and D of right middle finger Indications: discolored swollen tissue of the right middle finger distal phalanx and proximal phalanx on 3rd day of IV clindamycin. Description of procedure: The patient's finger was marked in the holding area. She was taken to the operating room and placed supine on the operating table. A time-out was held and confirmed she was given general anesthesia with an LMA. The right upper extremity was prepped and draped in usual fashion. Sloughing epithelium was trimmed away. There was no gross pus, the tissue was very edematous and purpuric. A dorsal midline incision was made after elevating the tourniquet to 250 mmHg. The discolored skin and subcutaneous tissue was elevated to both sides of the finger exposing the terminal tendon. The purple and hartley tissue extended to both sides of the finger. We bluntly dissected that free from the bone. The incision was extended over the distal interphalangeal joint. The terminal tendon was intact and there did not appear to be an opening into the joint capsule. The hand was turned over and a counter incision was made diagonally across the proximal pad. This wound was bluntly dissected exposing the flexor tendon sheath, this tissue did not have the same pepe purpuric appearance and there w as no purulence within the flexor tendon sheath. Both sites were very copiously irrigated was saline. Silver gel was applied to both wounds along with quarter-inch iodoform strips. The tourniquet was released a bulky gauze bandage was loosely wrapped with to the finger and wrist. Anesthesia: GLMA Surgeon: Magno Greenberg MD Lumber Trimmer: Deyanira Estimated blood loss (mL): 2 Drains: No Packing: Yes Pathology: none sent Complications: No immediate complications Condition: stable Disposition: PACU
[2020-11-15] MEDS: MULTIVITAMINS THERAPEUTIC TAB (*BKC) 1 TABLET PO (12:00)
[2020-11-15] MEDS: CELECOXIB 200 MG CAPSULE BY MOUTH ×2 (12:00→16:46)
[2020-11-15] MEDS: FAMOTIDINE 20 MG TABLET PO ×2 (12:00→16:46)
[2020-11-15] MEDS: ROSUVASTATIN 10 MG TABLET PO (12:00)
[2020-11-15] MEDS: OMEGA 3 POLYUNSAT FATTY ACIDS 1 GM CAP PO (12:01)
--- NOTE | 2020-11-15 13:04 | PM.IMPN ---
Progress Note: A&P Assessment and Plan (1) Cellulitis and abscess of finger, unspecified: Onset Date: ~11/10/20 Code(s): L03.019 - Cellulitis of unspecified finger; L02.519 - Cutaneous abscess of unspecified hand Status: Acute Assessment and Plan: She reported that she developed a blister at site of a previous wart which sloughed off after wearing gloves all day Tuesday. She subsequently noticed erythema, swelling, and pain on Tuesday which worsened prompting her to seek evaluation at urgent care on Tuesday. She was prescribed clindamycin but had no significant improvement. She denies known bite or trauma. She is s/p I&D in the ER 11/14 and I&D in the OR by Dr. Greenberg 11/15. WBC normalized. She is afebrile. Appreciate input from plastic surgery Preliminary anaerobic wound culture shows WBC and no organisms, aerobic culture pending. Follow cultures. Blood cultures pending Continue IV clindamycin Continue analgesics as needed Wound care per plastic surgery (2) Hypertension: Code(s): I10 - Essential (primary) hypertension Status: Chronic Assessment and Plan: Blood pressure a bit elevated above target with systolic reading in 140-150s, likely due to pain associated with cellulitis. Most recent BP 145/75. Continue amlodipine Continue to monitor and adjust treatment as needed (3) Hyperlipidemia: Code(s): E78.5 - Hyperlipidemia, unspecified Status: Chronic Assessment and Plan: Continue atorvastatin and omega-3 fatty acids Check LFTs for tomorrow Subjective Date/time seen: 11/15/20 13:04 Mrs. Shaw is a 65 y.o. female with PMH significant for hypertension, hyperlipidemia, and GERD who is seen in follow-up for cellulitis and abscess of the right 3rd finger. She is s/p incision and drainage in the OR by Dr. Greenberg today. She is not having any pain at this time. She denies subjective fever and chills. She is hungry and waiting for her food. She has no voiding concerns. She had a regular bowel movement yesterday. She has no nausea or vomiting. She has no shortness of breath, chest pain, or cough. She has no other complaints. Review of Systems Review of Systems: All systems reviewed & are unremarkable except as noted in HPI and below Exam Narrative: Exam Narrative: General: Very pleasant, well-developed, and well-nourished 65 y.o. female lying semi-recumbent in bed in no acute distress. HEENMT: Normocephalic and atraumatic. Sclera anicteric. EOMI. Oral mucosa moist. Neck: Supple. Cardiac: Regular rate and rhythm. S1 and S2 normal. Lungs: Effort normal. Lungs are clear to auscultation bilaterally. Abdomen: Bowel sounds positive. Abdomen is soft, non-distended, and non-tender. Extremities: Warm and well-perfused with SCDs in place. No lower extremity edema or calf tenderness. DP and PT 2+ bilaterally. Neurological: Alert. No focal neurological deficits noted to casual conversation. Speech is clear. Skin: Warm and dry. Right 3rd finger with bulky gauze bandage dressing and kerlex in place and wrapped around wrist. No erythema extending past dressing. I did not undress since she just returned from the operating room. Psychiatric: Judgment and insight intact. Mood and affect normal. Objective Data Vital Signs Vital Signs: Vital Signs - 24 hr 11/14/20 14:24 11/14/20 15:36 11/14/20 15:48 Temperature 97.7 F Pulse Rate 90 83 Respiratory Rate 18 16 Blood Pressure 187/67 H 150/67 H Pulse Oximetry 100 98 97 11/14/20 15:53 11/14/20 16:00 11/14/20 16:01 Temperature Pulse Rate Respiratory Rate Blood Pressure 144/61 H Pulse Oximetry 99 97 97 11/14/20 16:22 11/14/20 16:39 11/14/20 16:45 Temperature Pulse Rate Respiratory Rate Blood Pressure Pulse Oximetry 96 99 97 11/14/20 16:46 11/14/20 17:13 11/14/20 17:18 Temperature Pulse Rate Respiratory Rate 18 Blood Pressure 166/75 H Pulse Oximetry
[2020-11-15] MEDS: HYDROcodone/acetaminophen (*CRX) 5-325 MG TABLET 1 TAB PO ×2 (14:30→18:47)
[2020-11-15] MEDS: CHOLECALCIFEROL 1,000 UNITS TABLET 2000 UNITS PO (14:31)
[2020-11-15] MEDS: ENOXAPARIN 40 MG/0.4 ML SYRINGE SUB-Q (19:57)
[2020-11-15] MEDS: amLODIPine BESYLATE 5 MG TABLET BY MOUTH (19:57)
[2020-11-16] MEDS: HYDROcodone/acetaminophen (*CRX) 5-325 MG TABLET 1 TAB PO ×4 (00:42→22:47)
--- NOTE | 2020-11-16 03:37 | PC.NURSE ---
Daylight Savings Time For Daylight Savings Time Ending in the Fall - Clocks are moved back. For Daylight Savings Time Beginning in the Spring - Clocks are moved ahead. For [facility], the time of change occurs at 0200 hrs. Time is taken from the sql server dba developer. This entry on the patient's chart recognizes the change in time reflected during documentation. Example: 2 entries for vital signs may be charted for 0200 hrs.
[2020-11-16 05:59] LABS: Hematocrit 34.6 % (37.0-47.0); Hemoglobin 11.1 g/dL (12.0-15.0); Mean Corpuscular HGB Conc 32.1 g/dl (32-36); Mean Corpuscular Hemoglobin 28.7 pg (26-34); Mean Corpuscular Volume 89.4 fl (80-100); Mean Platelet Volume 12.2 fl (7.4-10.4); Platelet Count Result 133 k/mm3 (150-375); Red Blood Count 3.87 M/mm3 (4.2-5.4); Red Cell Distribution Width 13.5 % (11.5-14.5); White Blood Count 6.5 K/mm3 (4.5-10.0)
[2020-11-16 06:00] VITALS: BP 144/56; PULSE 76; RESP 16; TEMP 36.3; O2SAT 95
[2020-11-16 06:21] LABS: Alanine Aminotransferase 17 U/L (4-35); Albumin Level 3.6 g/dL (3.5-5.1); Alkaline Phosphatase 50 U/L (38-126); Anion Gap 3 mmol/L (8-16); Aspartate Amino Transferase 30 U/L (14-36); Bilirubin,Total 0.3 mg/dL (0.2-1.3); Blood Urea Nitrogen 12 mg/dL (7-17); CRP 5.8 mg/dL (<1.0); Calcium 8.6 mg/dL (8.4-10.2); Carbon Dioxide 30 mmol/L (22-30); Chloride 106 mmol/L (98-107); Estimated CRCL calculation 60 ml/min; Estimated Glomerular Filt Rate > 60; Glucose 106 mg/dL (65-105); Magnesium 1.9 mg/dL (1.6-2.3); Potassium 4.2 mmol/L (3.4-5.0); Sodium 139 mmol/L (137-145)
[2020-11-16] MEDS: CLINDAMYCIN 600 MG/NS 50 ML 600 MG/50 ML PIGGYBACK 100 MG IVPB (06:51)
[2020-11-16] MEDS: OMEGA 3 POLYUNSAT FATTY ACIDS 1 GM CAP PO (08:26)
[2020-11-16] MEDS: CHOLECALCIFEROL 1,000 UNITS TABLET 2000 UNITS PO (08:26)
[2020-11-16] MEDS: FAMOTIDINE 20 MG TABLET PO ×2 (08:26→17:31)
[2020-11-16] MEDS: MULTIVITAMINS THERAPEUTIC TAB (*BKC) 1 TABLET PO (08:27)
[2020-11-16] MEDS: CELECOXIB 200 MG CAPSULE BY MOUTH ×2 (08:27→17:30)
[2020-11-16] MEDS: ROSUVASTATIN 10 MG TABLET PO (08:27)
[2020-11-16 08:36] VITALS: O2SAT 95
--- NOTE | 2020-11-16 09:54 | PM.IMPN ---
Progress Note: A&P Assessment and Plan (1) Cellulitis and abscess of finger, unspecified: Onset Date: ~11/10/20 Code(s): L03.019 - Cellulitis of unspecified finger; L02.519 - Cutaneous abscess of unspecified hand Status: Acute Assessment and Plan: She reported that she developed a blister at site of a previous wart which sloughed off after wearing gloves all day Tuesday. She subsequently noticed erythema, swelling, and pain on Tuesday which worsened prompting her to seek evaluation at urgent care on Tuesday. She was prescribed clindamycin but had no significant improvement. She denies known bite or trauma. She is s/p I&D in the ER 11/14 and I&D in the OR by Dr. Greenberg 11/15. WBC normalized. She is afebrile. Appreciate input from plastic surgery Preliminary anaerobic wound culture shows WBC and no organisms, preliminary aerobic culture demonstrates Staphylococcus aureus. Await final cultures and sensitivites. Blood cultures demonstrate NGTD Continue IV clindamycin Continue analgesics as needed Wound care per plastic surgery (2) Hypertension: Code(s): I10 - Essential (primary) hypertension Status: Chronic Assessment and Plan: Blood pressure a bit elevated above target with systolic reading in 140-150s, likely due to post-op pain. Most recent BP . Continue amlodipine, may consider adding an additional agent if elevation persists Continue to monitor and adjust treatment as needed (3) Hyperlipidemia: Code(s): E78.5 - Hyperlipidemia, unspecified Status: Chronic Assessment and Plan: LFTs normal. Continue atorvastatin and omega-3 fatty acids Subjective Date/time seen: 11/16/20 09:54 Mrs. Shaw is a 65 y.o. female with PMH significant for hypertension, hyperlipidemia, and GERD who is seen in follow-up for cellulitis and abscess of the right 3rd finger. She is doing well today. She has some pain in her right middle finger but notes that she was doing a lot this morning with that hand. She notes increased ROM in that finger as well. She denies subjective fever and chills. Her appetite is good. She has not had a bowel movement yet but does not feel constipated. She has no dizziness, lightheadedness, or headache. She has no other concerns. Review of Systems Review of Systems: All systems reviewed & are unremarkable except as noted in HPI and below Exam Narrative: Exam Narrative: General: Pleasant, well-developed, and well-nourished 65 y.o. female lying semi-recumbent in bed in no acute distress. HEENMT: Normocephalic and atraumatic. Corrective lenses in palce. Oral mucosa moist. Neck: Supple. Cardiac: Regular rate and rhythm. S1 and S2 normal. Lungs: Lungs are clear to auscultation bilaterally. Abdomen: Bowel sounds positive. Abdomen is soft, non-distended, and non-tender. Extremities: Warm and well-perfused. SCDs in place. No lower extremity edema or calf tenderness. DP and PT 2+ bilaterally. Neurological: Alert. Exam is non-focal. Speech is clear. Skin: Warm and dry. Right 3rd finger with bulky gauze bandage dressing and kerlex in place and wrapped around wrist. No erythema extending past dressing. Good ROM. Psychiatric: Judgment and insight intact. Mood and affect normal. Objective Data Vital Signs Vital Signs: Vital Signs - 24 hr 11/15/20 09:07 11/15/20 10:31 11/15/20 10:45 Temperature 97.5 F L Pulse Rate 79 73 Respiratory Rate 10 L 15 Blood Pressure 128/69 144/66 H Pulse Oximetry 96 93 96 11/15/20 11:00 11/15/20 11:15 11/15/20 11:25 Temperature Pulse Rate 75 69 70 Respiratory Rate 17 17 10 L Blood Pressure 150/71 H 141/61 H 145/75 H Pulse Oximetry 92 95 94 11/15/20 14:00 11/15/20 20:47 11/15/20 21:57 Temperature 97.6 F 97.5 F L Pulse Rate 77 84 Respiratory Rate 18 18 Blood Pressure 155/75 H 177/64 H Pulse Oximetry 98 97 97 11/16/20 06:00 11/16/20 08:36 Temperature 97.3 F L Pulse Rate 76 Re
--- NOTE | 2020-11-16 11:33 | WPDPN ---
Progress Note: A&P Assessment and Plan (1) Cellulitis and abscess of finger, unspecified: Onset Date: ~11/10/20 Code(s): L03.019 - Cellulitis of unspecified finger; L02.519 - Cutaneous abscess of unspecified hand Status: Acute Assessment and Plan: Marked improvement. Needs continued hospitalization due to sensitivity pending and possibility of worsening of condition and need for and 2nd surgery. Will start nursing dressing change with Silver Gel. Objective Data Vital Signs Vital Signs: Vital Signs - 24 hr 11/15/20 10:45 11/15/20 11:00 11/15/20 11:15 Temperature Pulse Rate 73 75 69 Respiratory Rate 15 17 17 Blood Pressure 144/66 H 150/71 H 141/61 H Pulse Oximetry 96 92 95 11/15/20 11:25 11/15/20 14:00 11/15/20 20:47 Temperature 36.4 C Pulse Rate 70 77 Respiratory Rate 10 L 18 Blood Pressure 145/75 H 155/75 H Pulse Oximetry 94 98 97 11/15/20 21:57 11/16/20 06:00 11/16/20 08:36 Temperature 36.4 C L 36.3 C L Pulse Rate 84 76 Respiratory Rate 18 16 Blood Pressure 177/64 H 144/56 H Pulse Oximetry 97 95 95 Intake/Output Intake/Output: Intake & Output 11/13/20 11/14/20 11/15/20 11/17/20 23:59 23:59 23:59 00:59 Intake Total 1320 2420 300 Output Total 2100 1050 Balance 1320 320 -750 Meds/Results Medications: Active Medications Generic Name Dose Route Start Last Admin Trade Name Freq PRN Reason Stop Dose Admin Acetaminophen 650 mg 11/15/20 13:05 Acetaminophen 325 Mg Tablet PO Q4H PRN Pain rated 1-3 Hydrocodone Bitart/Acetaminophen 1 tab 11/15/20 11:10 11/16/20 00:42 Hydrocodone/Acetaminophen (*Crx) 5-325 Mg Tablet PO 1 tab Q4H PRN Administration Pain Rated 4-6 Amlodipine Besylate 5 mg 11/14/20 21:55 11/15/20 19:57 Amlodipine Besylate 5 Mg Tablet BY MOUTH 5 mg HS JUS Administration Celecoxib 200 mg 11/14/20 21:55 11/16/20 08:27 Celecoxib 200 Mg Capsule BY MOUTH 200 mg BID JUS Administration Enoxaparin Sodium 40 mg 11/15/20 21:00 11/15/20 19:57 Enoxaparin 40 Mg/0.4 Ml Syringe SUB-Q 40 mg HS JUS Administration Famotidine 20 mg 11/14/20 21:40 11/16/20 08:26 Famotidine 20 Mg Tablet PO 20 mg BID JSU Administration Fish Oil 1 gm 11/15/20 09:00 11/16/20 08:26 [place] 3 Polyunsat Fatty Acids 1 Gm Cap PO 1 gm DAILY JUS Administration Clindamycin Phosphate 600 mg in 50 mls @ 100 mls/hr 11/16/20 14:00 Clindamycin 600 Mg/D5w 50 Ml IVPB Q8HR JUS Lactated Ringer's 1,000 mls @ 30 mls/hr 11/15/20 09:50 11/15/20 11:30 Lr - Lactated Ringers Iv IV CONT Infused .Q24H JUS Infusion Lactated Ringer's 1,000 mls @ 30 mls/hr 11/15/20 09:50 Lr - Lactated Ringers Iv IV CONT .Q24H [facility] Morphine Sulfate 2 mg 11/15/20 13:06 Morphine Sulfate (*Crx) 4 Mg/Ml Inj IV PUSH Q2H PRN Pain Rated 7-10 Multivitamins Therapeutic 1 tablet 11/15/20 09:00 11/16/20 08:27 Multivitamins Therapeutic Tab (*Bkc) PO 1 tablet DAILY JUS Administration Ondansetron HCl 4 mg 11/14/20 17:32 Ondansetron Inj 4 Mg/2 Ml Vial IV PUSH Q4H PRN Nausea Ondansetron HCl 4 mg 11/15/20 09:47 Ondansetron Inj 4 Mg/2 Ml Vial IV PUSH ONCE PRN Nausea Oxycodone HCl 5 mg 11/15/20 09:47 Oxycodone Hcl (*Crx) 5 Mg Tab Ir PO ONCE PRN Pain Rosuvastatin Calcium 10 mg 11/15/20 09:00 11/16/20 08:27 Rosuvastatin 10 Mg Tablet PO 10 mg DAILY JUS Administration Silver Nitrate 1 applic 11/15/20 09:00 11/15/20 10:22 Silvergel (Elta) 45 Ml TOPICAL 1 applic Q72HR [facility] Administration Vitamin D 2,000 units 11/15/20 09:00 11/16/20 08:26 Cholecalciferol 1,000 Units Tablet PO 2,000 units DAILY JUS Administration Radiology Results: ITS Impressions Finger X-Ray 11/14/20 15:37 IMPRESSION: 1. Polyarticular osteoarthritis. Labs Labs: Laboratory Results - last 24 hr 11/16/20 11/16/20 05:33 05:33
[2020-11-16 14:00] VITALS: BP 150/69; PULSE 82; RESP 20; TEMP 36.7; O2SAT 95
--- NOTE | 2020-11-16 14:51 | WPDANESPN ---
Anes - Prog Note Post-Op Date/Time: 11/16/20 14:51 Cardiovascular status: normal Respiratory status: normal Airway patency: baseline Mental status: baseline Post-Op hydration status: normal Vital Signs: Last Vital Signs Temp 36.3 C L 11/16/20 06:00 Pulse 76 11/16/20 06:00 Resp 16 11/16/20 06:00 BP 144/56 H 11/16/20 06:00 Pulse Ox 95 11/16/20 08:36 Pain Score (VAS): no complaints I/O: Intake & Output 11/15/20 11/16/20 11/16/20 22:59 07:59 15:59 Intake Total 240 Output Total Balance 240 Laboratory Tests 11/16/20 05:33 11/16/20 05:33 11/16/20 11/16/20 05:33 05:33 WBC 6.5 RBC 3.87 L Hgb 11.1 L Hct 34.6 L MCV 89.4 MCH 28.7 MCHC 32.1 RDW 13.5 Plt Count 133 L MPV 12.2 H Sodium 139 Potassium 4.2 Chloride 106 Carbon Dioxide 30 Anion Gap 3 L BUN 12 Creatinine 0.70 Estim Creat Clear Calc 60 Estimated GFR > 60 Glucose 106 H Calcium 8.6 Magnesium 1.9 Total Bilirubin 0.3 AST 30 ALT 17 Alkaline Phosphatase 50 C-Reactive Protein 5.8 H Total Protein 7.0 Albumin 3.6 Microbiology 11/14/20 15:13 Abscess Anaerobic Culture - Preliminary 11/14/20 15:13 Abscess Aerobic Culture - Preliminary Staphylococcus aureus 11/14/20 23:46 Blood Blood Culture - Preliminary 11/14/20 23:46 Blood Blood Culture - Preliminary Post-procedural complaints: none Patient Feedback: Patient satisfied with anesthetic care.
[2020-11-16] MEDS: CLINDAMYCIN 600 MG/D5W 50 ML 600 MG/50 ML PIGGYBACK 100 MG IVPB ×2 (15:33→21:07)
[2020-11-16] MEDS: polyethylene glycoL 3350 17 GM POWD.PACK PO (17:30)
[2020-11-16 20:05] VITALS: O2SAT 96
[2020-11-16] MEDS: ENOXAPARIN 40 MG/0.4 ML SYRINGE SUB-Q (21:08)
[2020-11-16] MEDS: DOCUSATE SODIUM 100 MG CAPSULE PO (21:08)
[2020-11-16] MEDS: amLODIPine BESYLATE 5 MG TABLET BY MOUTH (21:09)
[2020-11-16 21:47] VITALS: BP 163/62; PULSE 77; RESP 16; TEMP 36.8; O2SAT 94
[2020-11-17 05:50] LABS: Hematocrit 34.8 % (37.0-47.0); Hemoglobin 11.3 g/dL (12.0-15.0); Mean Corpuscular HGB Conc 32.5 g/dl (32-36); Mean Corpuscular Hemoglobin 28.5 pg (26-34); Mean Corpuscular Volume 87.7 fl (80-100); Mean Platelet Volume 12.1 fl (7.4-10.4); Platelet Count Result 156 k/mm3 (150-375); Red Blood Count 3.97 M/mm3 (4.2-5.4); Red Cell Distribution Width 13.3 % (11.5-14.5); White Blood Count 5.8 K/mm3 (4.5-10.0)
[2020-11-17 06:00] VITALS: BP 148/60; PULSE 78; RESP 20; TEMP 36.8; O2SAT 95
[2020-11-17 06:02] LABS: CRP 7.1 mg/dL (<1.0)
[2020-11-17] MEDS: CLINDAMYCIN 600 MG/D5W 50 ML 600 MG/50 ML PIGGYBACK 100 MG IVPB (06:15)
[2020-11-17] MEDS: DOCUSATE SODIUM 100 MG CAPSULE PO ×2 (09:10→20:00)
[2020-11-17] MEDS: MULTIVITAMINS THERAPEUTIC TAB (*BKC) 1 TABLET PO (09:11)
[2020-11-17] MEDS: CHOLECALCIFEROL 1,000 UNITS TABLET 2000 UNITS PO (09:11)
[2020-11-17] MEDS: ROSUVASTATIN 10 MG TABLET PO (09:11)
[2020-11-17] MEDS: OMEGA 3 POLYUNSAT FATTY ACIDS 1 GM CAP PO (09:11)
[2020-11-17] MEDS: FAMOTIDINE 20 MG TABLET PO ×2 (09:11→16:51)
[2020-11-17] MEDS: CELECOXIB 200 MG CAPSULE BY MOUTH ×2 (09:11→16:51)
[2020-11-17] MEDS: HYDROcodone/acetaminophen (*CRX) 5-325 MG TABLET 1 TAB PO ×2 (12:11→19:56)
--- NOTE | 2020-11-17 13:00 | PM.IMPN ---
Progress Note: A&P Assessment and Plan (1) Cellulitis and abscess of finger, unspecified: Onset Date: ~11/10/20 Code(s): L03.019 - Cellulitis of unspecified finger; L02.519 - Cutaneous abscess of unspecified hand Status: Acute Assessment and Plan: She reported that she developed a blister at site of a previous wart which sloughed off after wearing gloves all day Tuesday. She subsequently noticed erythema, swelling, and pain on Tuesday which worsened prompting her to seek evaluation at urgent care on Tuesday. She was prescribed clindamycin but had no significant improvement. She denies known bite or trauma. She is s/p I&D in the ER 11/14 and I&D in the OR by Dr. Greenberg 11/15. WBC normalized. She is afebrile. CRP is a bit higher today at 7.1 (previously 5.8). Appreciate input from plastic surgery Preliminary anaerobic wound culture shows WBC and no organisms. Aerobic culture demonstrates Staphylococcus aureus which is resistant to clindamycin. Stop clindamycin and start IV levaquin per culture sensitivities. Blood cultures demonstrate NGTD Continue analgesics as needed Wound care per plastic surgery (2) Hypertension: Code(s): I10 - Essential (primary) hypertension Status: Chronic Assessment and Plan: Blood pressure a bit elevated above target with systolic reading in 140-150s. This may be secondary to post-op pain, however, it appears that BP has been elevated in the past. Most recent BP 148/60. Continue amlodipine Will start low dose lisinopril 5mg for tomorrow Continue to monitor and adjust treatment as needed (3) Hyperlipidemia: Code(s): E78.5 - Hyperlipidemia, unspecified Status: Chronic Assessment and Plan: LFTs normal. Continue atorvastatin and omega-3 fatty acids Subjective Date/time seen: 11/17/20 13:00 Mrs. Shaw is a 65 y.o. female with PMH significant for hypertension, hyperlipidemia, and GERD who is seen in follow-up for cellulitis and abscess of the right 3rd finger. Her finger is less swollen and she reports no further pain in her adjacent fingers. ROM in the right middle finger has also improved. She denies subjective fever and chills. She denies nausea, vomiting, and abdominal pain. She denies shortness of breath and chest pain. She had a good formed bowel movement today. She is not having any diarrhea. She has no voiding concerns. She has no dizziness or lightheadedness. Review of Systems Review of Systems: All systems reviewed & are unremarkable except as noted in HPI and below Exam Narrative: Exam Narrative: General: Pleasant, well-developed, and well-nourished 65 y.o. female sitting up in bed in no acute distress. HEENMT: Normocephalic and atraumatic. Oral mucosa moist. Neck: Supple. Cardiac: Regular rate and rhythm. S1 and S2 normal. Lungs: Lungs are clear to auscultation bilaterally. Abdomen: Bowel sounds positive. Abdomen is soft, non-distended, and non-tender. Extremities: Warm and well-perfused. SCDs in place. No lower extremity edema or calf tenderness. DP and PT 2+ bilaterally. Neurological: Alert. Exam is non-focal. Speech is clear. Skin: Warm and dry. Approximately 3cm midline incision on the dorsum of the right 3rd finger with packing in place. Swelling present. Scant sanguineous drainage at the wound bed without purulent drainage. The tip of the finger is warm with good color and brisk capillary refill. Psychiatric: Judgment and insight intact. Mood and affect normal. Objective Data Vital Signs Vital Signs: Vital Signs - 24 hr 11/16/20 14:00 11/16/20 20:05 11/16/20 21:47 Temperature 98.1 F 98.2 F Pulse Rate 82 77 Respiratory Rate 20 16 Blood Pressure 150/69 H 163/62 H Pulse Oximetry 95 96 94 11/17/20 06:00 Temperature 98.3 F Pulse Rate 78 Respiratory Rate 20 Blood Pressure 148/60 H Pulse Oximetry 95 Intake/Output Intake/Output: Intake & Output 11/14/20 11/15/20 11/16/2011/03
--- NOTE | 2020-11-17 13:16 | WPDPN ---
Progress Note: A&P Assessment and Plan (1) Cellulitis and abscess of finger, unspecified: Onset Date: ~11/10/20 Code(s): L03.019 - Cellulitis of unspecified finger; L02.519 - Cutaneous abscess of unspecified hand Status: Acute Additional Plan Clindamycin resistant SA. Switch to Cefazolan. Wick removal tomorrow. Possibly dicharge tomorrow. Objective Data Vital Signs Vital Signs: Vital Signs - 24 hr 11/16/20 14:00 11/16/20 20:05 11/16/20 21:47 Temperature 36.7 C 36.8 C Pulse Rate 82 77 Respiratory Rate 20 16 Blood Pressure 150/69 H 163/62 H Pulse Oximetry 95 96 94 11/17/20 06:00 Temperature 36.8 C Pulse Rate 78 Respiratory Rate 20 Blood Pressure 148/60 H Pulse Oximetry 95 Intake/Output Intake/Output: Intake & Output 11/14/20 11/15/20 11/16/20 11/17/20 22:59 22:59 23:59 23:59 Intake Total 730 Output Total 1500 Balance -770 Meds/Results Medications: Active Medications Generic Name Dose Route Start Last Admin Trade Name Freq PRN Reason Stop Dose Admin Acetaminophen 650 mg 11/15/20 13:05 Acetaminophen 325 Mg Tablet PO Q4H PRN Pain rated 1-3 Hydrocodone Bitart/Acetaminophen 1 tab 11/15/20 11:10 11/17/20 12:11 Hydrocodone/Acetaminophen (*Crx) 5-325 Mg Tablet PO 1 tab Q4H PRN Administration Pain Rated 4-6 Amlodipine Besylate 5 mg 11/14/20 21:55 11/16/20 21:09 Amlodipine Besylate 5 Mg Tablet BY MOUTH 5 mg HS JUS Administration Celecoxib 200 mg 11/14/20 21:55 11/17/20 09:11 Celecoxib 200 Mg Capsule BY MOUTH 200 mg BID JUS Administration Docusate Sodium 100 mg 11/16/20 21:00 11/17/20 09:10 Docusate Sodium 100 Mg Capsule PO 100 mg Q12HR JUS Administration Enoxaparin Sodium 40 mg 11/15/20 21:00 11/16/20 21:08 Enoxaparin 40 Mg/0.4 Ml Syringe SUB-Q 40 mg HS JUS Administration Famotidine 20 mg 11/14/20 21:40 11/17/20 09:11 Famotidine 20 Mg Tablet PO 20 mg BID JUS Administration Fish Oil 1 gm 11/15/20 09:00 11/17/20 09:11 [place] 3 Polyunsat Fatty Acids 1 Gm Cap PO 1 gm DAILY JUS Administration Lactated Ringer's 1,000 mls @ 30 mls/hr 11/15/20 09:50 11/16/20 21:14 Lr - Lactated Ringers Iv IV CONT Not Given .Q24H JUS Lactated Ringer's 1,000 mls @ 30 mls/hr 11/15/20 09:50 11/16/20 21:13 Lr - Lactated Ringers Iv IV CONT Not Given .Q24H JUS Levofloxacin/Dextrose 750 mg in 150 mls @ 100 mls/hr 11/17/20 13:00 Levaquin 750 Mg/D5w 150 Ml IVPB Q24H JUS Lisinopril 5 mg 11/18/20 09:00 Lisinopril 5 Mg Tablet PO QAM [facility] Morphine Sulfate 2 mg 11/15/20 13:06 Morphine Sulfate (*Crx) 4 Mg/Ml Inj IV PUSH Q2H PRN Pain Rated 7-10 Multivitamins Therapeutic 1 tablet 11/15/20 09:00 11/17/20 09:11 Multivitamins Therapeutic Tab (*Bkc) PO 1 tablet DAILY JUS Administration Ondansetron HCl 4 mg 11/14/20 17:32 Ondansetron Inj 4 Mg/2 Ml Vial IV PUSH Q4H PRN Nausea Oxycodone HCl 5 mg 11/15/20 09:47 Oxycodone Hcl (*Crx) 5 Mg Tab Ir PO ONCE PRN Pain Polyethylene Glycol 17 gm 11/16/20 15:32 11/16/20 17:30 Polyethylene Glycol 3350 17 Gm Powd.Pack PO 17 gm DAILY PRN Administration Constipation Rosuvastatin Calcium 10 mg 11/15/20 09:00 11/17/20 09:11 Rosuvastatin 10 Mg Tablet PO 10 mg DAILY JUS Administration Silver Nitrate 1 applic 11/15/20 09:00 11/15/20 10:22 Silvergel (Elta) 45 Ml TOPICAL 1 applic Q72HR JUS Administration Vitamin D 2,000 units 11/15/20 09:00 11/17/20 09:11 Cholecalciferol 1,000 Units Tablet PO 2,000 units DAILY JUS Administration Radiology Results: ITS Impressions Finger X-Ray 11/14/20 15:37 IMPRESSION: 1. Polyarticular osteoarthritis. Labs Labs: Laboratory Results - last 24 hr 11/17/20 11/17/20 05:16 05:16 WBC 5.8 RBC 3.97 L Hgb 11.3 L Hct 34.8 L MCV 87.7 MCH 28.5 MCHC 32.5 RDW 13.3
[2020-11-17 14:00] VITALS: BP 164/57; PULSE 70; RESP 18; TEMP 36.9; O2SAT 96
[2020-11-17] MEDS: ceFAZolin 2 GM/D5W 50 ML 2 GM/50 ML BAG IVPB ×2 (15:07→22:04)
[2020-11-17] MEDS: amLODIPine BESYLATE 5 MG TABLET BY MOUTH (19:59)
[2020-11-17] MEDS: ENOXAPARIN 40 MG/0.4 ML SYRINGE SUB-Q (19:59)
[2020-11-17 22:00] VITALS: BP 157/63; PULSE 78; RESP 20; TEMP 36.5; O2SAT 96
[2020-11-18 06:00] VITALS: BP 153/78; PULSE 70; RESP 16; TEMP 36.8; O2SAT 95
[2020-11-18] MEDS: ceFAZolin 2 GM/D5W 50 ML 2 GM/50 ML BAG IVPB ×2 (06:02→12:38)
[2020-11-18 06:26] LABS: Basophils Percent Auto 0.7 % (0.2-1.2); Eosinophils Percent Auto 0.4 % (0-4.4); Hematocrit 36.5 % (37.0-47.0); Immature Granulocyte Absolute 0.21 K/mm3 (0.00-0.031); Immature Granulocyte Percent A 3.7 % (0-0.5); Lymphocytes Absolute Auto 1.82 K/mm3 (0.9-3.2); Mean Corpuscular HGB Conc 32.9 g/dl (32-36); Mean Corpuscular Hemoglobin 28.3 pg (26-34); Mean Corpuscular Volume 86.1 fl (80-100); Mean Platelet Volume 11.8 fl (7.4-10.4); Monocytes Absolute Auto 1.9 K/mm3 (0.1-0.6); Monocytes Percent Auto 32.7 % (2.6-8.5); Neutrophils Absolute Auto 1.7 K/mm3 (1.3-6.7); Neutrophils Percent Auto 30.5 % (45.5-73.1); Platelet Count Result 190 k/mm3 (150-375); Red Blood Count 4.24 M/mm3 (4.2-5.4); Red Cell Distribution Width 13.3 % (11.5-14.5); White Blood Count 5.7 K/mm3 (4.5-10.0)
[2020-11-18 06:38] LABS: Anion Gap 7 mmol/L (8-16); Blood Urea Nitrogen 16 mg/dL (7-17); Calcium 9.3 mg/dL (8.4-10.2); Carbon Dioxide 29 mmol/L (22-30); Chloride 104 mmol/L (98-107); Estimated CRCL calculation 53 ml/min; Estimated Glomerular Filt Rate > 60; Glucose 107 mg/dL (65-105); Potassium 4.1 mmol/L (3.4-5.0); Sodium 140 mmol/L (137-145)
[2020-11-18] MEDS: MULTIVITAMINS THERAPEUTIC TAB (*BKC) 1 TABLET PO (08:33)
[2020-11-18] MEDS: FAMOTIDINE 20 MG TABLET PO (08:33)
[2020-11-18] MEDS: CELECOXIB 200 MG CAPSULE BY MOUTH (08:33)
[2020-11-18] MEDS: OMEGA 3 POLYUNSAT FATTY ACIDS 1 GM CAP PO (08:33)
[2020-11-18] MEDS: ROSUVASTATIN 10 MG TABLET PO (08:33)
[2020-11-18] MEDS: DOCUSATE SODIUM 100 MG CAPSULE PO (08:33)
[2020-11-18] MEDS: CHOLECALCIFEROL 1,000 UNITS TABLET 2000 UNITS PO (08:33)
[2020-11-18] MEDS: lisinopriL 5 MG TABLET PO (08:33)
[2020-11-18 08:39] VITALS: PULSE 80; RESP 18; O2SAT 99
--- NOTE | 2020-11-18 11:53 | WPDPN ---
Progress Note: A&P Assessment and Plan (1) Cellulitis and abscess of finger, unspecified: Onset Date: ~11/10/20 Code(s): L03.019 - Cellulitis of unspecified finger; L02.519 - Cutaneous abscess of unspecified hand Status: Acute Assessment and Plan: Improving daily. No further benefit to remaining in the hospital. Additional Plan OK from my stand point to be discharged. *Oral Cephalexin for at least 7 days. *Continue Silver Gel to both wounds on finger daily. *May wash finger in Saline. * F/U with Dr. Greenberg on Tuesday. * Hydrocodone for pain relief. Thanks. Exam Narrative: Exam Narrative: Pt feels finger is better. Redressed. No purulance. Lis removed. Tolerates passive flexion and extension. finger still edematous, but less tender. Dry skin beginning to peel off. Objective Data Vital Signs Vital Signs: Vital Signs - 24 hr 11/17/20 14:00 11/17/20 22:00 11/18/20 06:00 Temperature 36.9 C 36.5 C 36.8 C Pulse Rate 70 78 70 Respiratory Rate 18 20 16 Blood Pressure 164/57 H 157/63 H 153/78 H Pulse Oximetry 96 96 95 11/18/20 08:39 Temperature Pulse Rate 80 Respiratory Rate 18 Blood Pressure Pulse Oximetry 99 Intake/Output Intake/Output: Intake & Output 11/15/20 11/16/20 11/17/20 11/18/20 22:59 23:59 23:59 23:59 Intake Total 2960 540 Output Total 3600 1300 Balance -640 -760 Meds/Results Medications: Active Medications Generic Name Dose Route Start Last Admin Trade Name Freq PRN Reason Stop Dose Admin Acetaminophen 650 mg 11/15/20 13:05 Acetaminophen 325 Mg Tablet PO Q4H PRN Pain rated 1-3 Hydrocodone Bitart/Acetaminophen 1 tab 11/15/20 11:10 11/17/20 19:56 Hydrocodone/Acetaminophen (*Crx) 5-325 Mg Tablet PO 1 tab Q4H PRN Administration Pain Rated 4-6 Amlodipine Besylate 5 mg 11/14/20 21:55 11/17/20 19:59 Amlodipine Besylate 5 Mg Tablet BY MOUTH 5 mg HS JUS Administration Celecoxib 200 mg 11/14/20 21:55 11/18/20 08:33 Celecoxib 200 Mg Capsule BY MOUTH 200 mg BID JUS Administration Docusate Sodium 100 mg 11/16/20 21:00 11/18/20 08:33 Docusate Sodium 100 Mg Capsule PO 100 mg Q12HR JUS Administration Enoxaparin Sodium 40 mg 11/15/20 21:00 11/17/20 19:59 Enoxaparin 40 Mg/0.4 Ml Syringe SUB-Q 40 mg HS JUS Administration Famotidine 20 mg 11/14/20 21:40 11/18/20 08:33 Famotidine 20 Mg Tablet PO 20 mg BID JUS Administration Fish Oil 1 gm 11/15/20 09:00 11/18/20 08:33 [place] 3 Polyunsat Fatty Acids 1 Gm Cap PO 1 gm DAILY JUS Administration Lactated Ringer's 1,000 mls @ 30 mls/hr 11/15/20 09:50 11/16/20 21:14 Lr - Lactated Ringers Iv IV CONT Not Given .Q24H JUS Lactated Ringer's 1,000 mls @ 30 mls/hr 11/15/20 09:50 11/16/20 21:13 Lr - Lactated Ringers Iv IV CONT Not Given .Q24H JUS Cefazolin Sodium 2 gm in 50 mls @ 100 mls/hr 11/17/20 14:00 11/18/20 06:32 Ancef 2 Gm/D5w 50 Ml IVPB Infused Q8HR [facility] Infusion Lisinopril 5 mg 11/18/20 09:00 11/18/20 08:33 Lisinopril 5 Mg Tablet PO 5 mg QAM [facility] Administration Morphine Sulfate 2 mg 11/15/20 13:06 Morphine Sulfate (*Crx) 4 Mg/Ml Inj IV PUSH Q2H PRN Pain Rated 7-10 Multivitamins Therapeutic 1 tablet 11/15/20 09:00 11/18/20 08:33 Multivitamins Therapeutic Tab (*Bkc) PO 1 tablet DAILY [facility] Administration Ondansetron HCl 4 mg 11/14/20 17:32 Ondansetron Inj 4 Mg/2 Ml Vial IV PUSH Q4H PRN Nausea Oxycodone HCl 5 mg 11/15/20 09:47 Oxycodone Hcl (*Crx) 5 Mg Tab Ir PO ONCE PRN Pain Polyethylene Glycol 17 gm 11/16/20 15:32 11/16/20 17:30 Polyethylene Glycol 3350 17 Gm Powd.Pack PO 17 gm DAILY PRN Administration Constipation Rosuvastatin Calcium 10 mg 11/15/20 09:00 11/18/20 08:33 Rosuvastatin 10 Mg Tablet PO 10 mg DAILY JUS Administration Silver Nitrate 1 applic 11/15/20 09:00
[2020-11-18] MEDS: HYDROcodone/acetaminophen (*CRX) 5-325 MG TABLET 1 TAB PO (12:34)
--- NOTE | 2020-11-18 14:21 | PM.DS ---
DS: Admitting Diagnosis Admitting Diagnosis Admitting Diagnosis: Cellulitis and abscess of right 3rd digit DS: Discharge Diagnosis Discharge Diagnosis (1) Cellulitis and abscess of finger, unspecified: Onset Date: ~11/10/20 Code(s): L03.019 - Cellulitis of unspecified finger; L02.519 - Cutaneous abscess of unspecified hand Status: Acute Assessment and Plan: She reported that she developed a blister at site of a previous wart which sloughed off after wearing gloves all day Friday 11/10. She subsequently noticed erythema, swelling, and pain on 11/11 which worsened prompting her to seek evaluation at urgent care on Sunday 11/12. She was prescribed clindamycin but had no significant improvement. She denies known bite or trauma. She is s/p I&D in the ER 11/14 and I&D in the OR by Dr. Greenberg (hand surgeon) on 11/15. WBC normalized. She is afebrile. She was treated with IV Clindamycin, however aerobic wound cultures demonstrated staphylococcus aureus with resistance to clindamycin, therefore she was switched to IV Ancef. Blood cultures with NGTD. She will continue PO Keflex x7 days and local wound care with silver gel daily. She will follow up with Dr. Greenberg outpatient in 3 days. (2) Hypertension: Code(s): I10 - Essential (primary) hypertension Status: Chronic Assessment and Plan: Blood pressures monitored and were elevated above target in the 150s-160s systolic. Low dose lisinopril was added to her regimen. Encouraged her to monitor BP at home and record for review and further medication adjustment per PCP. Continue amlodipine. (3) Hyperlipidemia: Code(s): E78.5 - Hyperlipidemia, unspecified Status: Chronic Assessment and Plan: LFTs normal. Continue atorvastatin and omega-3 fatty acids DS: Summary Hospital Course Reason for hospitalization: Finger abscess Hospital Course: Date of admission: 11/14/20 Date of discharge: 11/18/20 Zoey Shaw is a 65 year old female with PMH significant for hypertension, hyperlipidemia, and GERD who presented to the emergency department on 11/14/2020 with complaints of pain, redness, and swelling to the right 3rd digit ongoing for around 5 days. She had been evaluated at urgent care and started on a course of antibiotics, however her erythema and pain increased, and she had limited range of motion. Upon presentation to the emergency department, her BP was elevated with additional vital signs stable, she was afebrile, white count was 10.1, additional CBC and electrolytes unremarkable, CRP 6.2, and finger x-ray showed polyarticular osteoarthritis. She underwent I&D in the emergency department. She was then admitted to the hospitalist service for further evaluation management and seen in consultation by Dr. Greenberg, hand surgeon. Please see above for further details. She underwent subsequent I&D in the OR with Dr. Greenberg. She was treated with IV antibiotics and will continue course of p.o. antibiotics as an outpatient. She will follow-up with Dr. Greenberg in 3 days. We discussed worrisome signs of worsened infection to monitor for and she was educated on her medications. Given her overall improvement, she was determined to no longer require inpatient care and was felt to be stable for discharge. She was comfortable with return home. She was educated on local wound care. She was discharged in hemodynamically stable condition on 11/18/2020. Status at Discharge Functional status at discharge: independent ambulation Overall status at discharge: patient is progressing back to baseline Time Spent with Patient Time attestation: Total time spent providing and/or coordinating discharge services: 45 minutes Time spent: Greater than 30 minutes Exam Narrative: Exam Narrative: Ms. Shaw is a well-nourished, well-appearing 65-year-old female who is supine in bed. She appears comfortable and is in NARD. Neuro: awake, alert and oriented x4, speech clear, n
[2020-11-18] MEDS: SILVERGEL (ELTA) 45 ML 1 APPLIC TOPICAL (14:39)
== END 2020-11-18 14:20 | disposition home or self-care (01) | DRG 603 ==
LOC: ANHED 16:19 → ANH3MEDSUR 18:00
PROVIDERS: Emergency Medicine Emergency Medical Services; Physician Assistant; Plastic Surgery; Admitting Provider Internal Medicine; Emergency Provider Emergency Medicine; PCP Internal Medicine; Visit Provider Physician Assistant
DX: L03.011 Cellulitis of right finger (principal); B95.61 Methicillin susceptible Staphylococcus aureus infection as the cause of diseases classified elsewhere; I10 Essential (primary) hypertension; E78.5 Hyperlipidemia, unspecified; K21.9 Gastro-esophageal reflux disease without esophagitis; Z87.891 Personal history of nicotine dependence
CPT/HCPCS: 26010; 36415; 73140; 80048; 80053; 83735; 85025; 85027; 86140; 87040; 87070; 87075; 87147; 87186; 87205; 96365; 96368; 96375; 99285; A9270; J0131; J0690; J1650; J2250; J2270; J2405; J2704; J3010; J7030; J7120

== ENCOUNTER → 2020-12-05 15:01 | Outpatient (CLI) | payer BC, SELFPAY ==
--- NOTE | ~2020-12-05 | XR_ITS ---
EXAMINATION: XR finger 3rd RT min 2V DATE: 12/05/2020 15:31 INDICATION: Osteomyelitis of right hand third digit. TECHNIQUE: 4 views of right hand third digit were obtained. COMPARISON: Right hand third digit radiographs 11/14/2020 FINDINGS: There is flexion of third distal interphalangeal joint and hyperextension of proximal inter phalangeal joint. No fracture. There is moderate osteoarthritis of distal interphalangeal joint and m ild osteoarthritis of proximal interphalangeal joint. IMPRESSION: 1. No specific evidence of osteomyelitis. 2. Summit-neck deformity of the third digit. 3. Polyarticular osteoarthritis. Reviewed, dictated and finalized at location A.
== END ==
PROVIDERS: Visit Provider Plastic Surgery
DX: M20.031 Swan-neck deformity of right finger(s) (principal); M19.041 Primary osteoarthritis, right hand
CPT/HCPCS: 73140

== ENCOUNTER → 2022-01-12 16:54 | Outpatient (CLI) | payer BC, SELFPAY ==
--- NOTE | ~2022-01-12 | MM_ITS ---
EXAMINATION: MM screening michael BI w vaishali HISTORY: Screening TECHNIQUE: Craniocaudal and mediolateral oblique 3-D tomosynthesis images were obtained and synthetic 2-D images were generated. CAD analysis was submitted and interpreted. COMPARISON: 03/10/2020 BREAST PARENCHYMAL COMPOSITION: There are scattered areas of fibroglandular density. FINDINGS: There is no evidence of suspicious mass, calcification, or architectural distortion to sugg est malignancy in either breast. There has been no suspicious interval change. IMPRESSION: 1. No mammographic evidence of malignancy. 2. Recommend routine screening mammography in one year. BI-RADS Category 1: Negative Reviewed, dictated and finalized at location A.
== END ==
PROVIDERS: PCP Internal Medicine; Visit Provider Internal Medicine
DX: Z12.31 Encounter for screening mammogram for malignant neoplasm of breast (principal)
CPT/HCPCS: 77063; 77067

== ENCOUNTER 2022-03-15 01:27 | Day surgery (SDC) | payer BC, SELFPAY ==
[2022-02-23 14:54] VITALS: BMI 27.1
[2022-03-15 06:47] VITALS: BP 165/68; PULSE 86; RESP 16; TEMP 36.4; O2SAT 100
[2022-03-15] MEDS: LACTATED RINGERS 1,000 ML 150 ML IV CONT (06:52)
--- NOTE | 2022-03-15 07:02 | WPDANESEPPF ---
Anes - Initial Pre Proc Eval Procedure: Operation Date: 03/15/22 08:00 Proposed Procedures p Screening Colonoscopy - Nazario Ureña MD Date/Time: 03/15/22 07:02 Surgeon: Nazario Ureña MD Pre Op Diagnosis: neoplasm screening Patient Data Age: 66 Gender: F Height: 1.65 m Weight: 74.3 kg Last Vital Signs Temp 36.4 C L 03/15/22 06:47 Pulse 86 03/15/22 06:47 Resp 16 03/15/22 06:47 BP 165/68 H 03/15/22 06:47 Pulse Ox 100 03/15/22 06:47 O2 Del Method Room Air 03/15/22 06:47 Allergies Allergy/AdvReac Type Severity Reaction Status Date / Time sulfamethoxazole Allergy Intermediate Rash Verified 03/15/22 06:46 [From Bactrim] trimethoprim [From Bactrim] Allergy Intermediate Rash Verified 03/15/22 06:46 Home Medications Medication Instructions Recorded Confirmed Type multivitamin 1 tablet PO DAILY 10/05/19 03/15/22 History omega-3 fatty acids 1,000 mg 1,000 mg PO DAILY 10/05/19 03/15/22 History capsule (Fish Oil Concentrate) cholecalciferol (vitamin D3) 50 50 mcg PO DAILY 11/15/20 03/15/22 History mcg (2,000 unit) tablet (Vitamin D3) amlodipine 10 mg tablet See Rx Instructions .Route 10/13/21 03/15/22 Rx .COMPLEX #90 tabs lisinopril 5 mg tablet 5 mg PO QAM #90 tabs 10/13/21 03/15/22 Rx atorvastatin 20 mg tablet 20 mg PO .EVERY OTHER DAY #45 tabs 12/11/21 03/15/22 Rx celecoxib 200 mg capsule See Rx Instructions .Route 12/22/21 03/15/22 Rx .COMPLEX #90 caps Patient hx anesthesia problems: none Family hx anesthesia problems: none Results Review: All pre-operative results and documents have been reviewed as part of the pre-operative evaluation. 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 She does not have a durable power state's attorney for healthcare. The patient has 1 son. The patient was a former smoker. She does not use any alcohol or illicit drugs. 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 She does not use any alcohol, marijuana or illicit drugs. Smoking packs per day: 0.5 Smoking cigarettes per day: 10.0 Years smoked: 10 Smoking pack-years: 5.00 Smoking status: Former smoker Tobacco type: cigarettes Second hand tobacco smoke exposure: No Smoking end date: 09/19/83 Alcohol intake: current Alcohol use details: Drinks Anna, occasionally. Substance use: never Substance use type: does not use Living arrangements: alone Additional occupation/education comments: [employer] Gender identity (if verbalized by the patient): Female Spiritual care concerns: No Anes - Eval Final PreProcedure Day of Procedure 03/15/22 07:02 Patient weight: overweight Heart: regular rate and rhythm Lungs: clear to auscultation Airway: Mallampati scale class II Neurological: alert and oriented Last oral intake: >/= 8 hours ASA classification: II Emergent: no Anesthetic plan: proceed Anesthesia type and monitoring: general GIVS and standard monitoring Results Review: All pre-operative results and documents have been reviewed as part of the pre-operative evaluation. Informed Consent: The patient's anesthetic plan and
--- NOTE | 2022-03-15 07:49 | PM.HPGS ---
History of Present Illness History of Present Illness Consent: Risks, benefits, and alternatives have been discussed and questions answered. Patient agrees to proceed with procedure. Chief complaint: neoplasm screening Narrative: Zoey Shaw is a 66 year old female here for first screening colonoscopy Review of Systems Constitutional: Constitutional: Denies headache(s) and Denies weakness Eyes: Eyes: Denies blurry vision ENT: Reports Normal hearing present, Denies headache(s) and Denies neck pain Cardiovascular: Cardiovascular: Denies chest pain and Denies dyspnea Respiratory: Respiratory: Denies dyspnea Gastrointestinal: Gastrointestinal: Reports no additional gastrointestinal complaints Genitourinary: Genitourinary: Denies dysuria Musculoskeletal: Musculoskeletal: Denies neck pain Integumentary/Breasts: Skin/Breast: Denies dry skin Neurologic: Reports Normal hearing present, Denies headache(s) and Denies weakness Psychiatric: Psychiatric: Denies anxiety Endocrine: Endocrine: Denies change in body appearance Hematologic/Lymphatic: Hematologic/Lymphatic: Denies easy bleeding Allergic/Immunologic: Allergic/Immunologic: Denies urticaria [facility] Past Medical History Medical History (Updated 03/15/22 @ 07:49 by Nazario Ureña MD) Bilateral carpal tunnel syndrome Colon cancer screening Hyperlipidemia Hypertension 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 The patient has 1 son. The patient was a former smoker. She does not use any alcohol or illicit drugs. 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 She does not use any alcohol, marijuana or illicit drugs. Smoking packs per day: 0.5 Smoking cigarettes per day: 10.0 Years smoked: 10 Smoking pack-years: 5.00 Smoking status: Former smoker Tobacco type: cigarettes Second hand tobacco smoke exposure: No Smoking end date: 09/19/83 Alcohol intake: current Alcohol use details: Drinks Anna, occasionally. Substance use: never Substance use type: does not use Living arrangements: alone Additional occupation/education comments: [employer] Gender identity (if verbalized by the patient): Female Spiritual care concerns: No Meds Home Medications and Allergies Home Medications Medication Instructions Recorded Confirmed Type multivitamin 1 tablet PO DAILY 10/05/19 03/15/22 History omega-3 fatty acids 1,000 mg 1,000 mg PO DAILY 10/05/19 03/15/22 History capsule (Fish Oil Concentrate) cholecalciferol (vitamin D3) 50 50 mcg PO DAILY 11/15/20 03/15/22 History mcg (2,000 unit) tablet (Vitamin D3) amlodipine 10 mg tablet See Rx Instructions .Route 10/13/21 03/15/22 Rx .COMPLEX #90 tabs lisinopril 5 mg tablet 5 mg PO QAM #90 tabs 10/13/21 03/15/22 Rx atorvastatin 20 mg tablet 20 mg PO .EVERY OTHER DAY #45 tabs 12/11/21 03/15/22 Rx celecoxib 200 mg capsule See Rx Instructions .Route 12/22/21 03/15/22 Rx .COMPLEX #90 caps Allergies Allergy/AdvReac Type Severity Reaction Status Date / Time sulfamethoxazole Allergy Intermediate Rash Verified 03/15/22 06:46 [From Bactrim] trimethoprim [From Bactrim] Allergy Intermediate Rash Verified 03/15/22 06:46 Vital Signs Vital Signs - 24 hr 07
[2022-03-15 08:09] VITALS: BP 133/67; PULSE 65; RESP 20; O2SAT 99
[2022-03-15 08:19] VITALS: BP 140/85; PULSE 66; RESP 20; O2SAT 100
[2022-03-15 08:29] VITALS: BP 142/74; PULSE 65; RESP 20; O2SAT 100
== END 2022-03-15 08:37 | disposition home or self-care (01) ==
PROVIDERS: PCP Internal Medicine; Visit Provider Internal Medicine Gastroenterology
PROC: 0DJD8ZZ Inspection of Lower Intestinal Tract, Via Natural or Artificial Opening Endoscopic (ICD-10-PCS; CPT 45378; principal; 2022-03-15 08:00)
DX: Z12.11 Encounter for screening for malignant neoplasm of colon (principal); K57.30 Diverticulosis of large intestine without perforation or abscess without bleeding; K64.8 Other hemorrhoids; K64.4 Residual hemorrhoidal skin tags; I10 Essential (primary) hypertension; E78.5 Hyperlipidemia, unspecified; Z87.891 Personal history of nicotine dependence
CPT/HCPCS: 45378; J2704; J7120

== ENCOUNTER → 2023-02-22 13:55 | Outpatient (CLI) | payer BC, SELFPAY ==
--- NOTE | ~2023-02-22 | MM_ITS ---
EXAMINATION: MM screening michael BI w vaishali HISTORY: Screening mammogram TECHNIQUE: Craniocaudal and mediolateral oblique 3-D tomosynthesis images were obtained and synthetic 2-D images were generated. CAD analysis was submitted and interpreted. COMPARISON: 01/12/2022 bilateral screening mammogram 03/21/2020 diagnostic left mammogram 03/10/2020 bilateral screening mammogram BREAST PARENCHYMAL COMPOSITION: The breasts are almost entirely fatty. FINDINGS: Scattered benign calcifications are noted, primarily on the right. There is no evidence of suspicious mass, calcification, or architectural distortion to suggest malignancy in either breast. T here has been no suspicious interval change. IMPRESSION: 1. No mammographic evidence of malignancy. 2. Recommend routine screening mammography in one year. BI-RADS Category 2: Benign finding(s). Reviewed, dictated and finalized at location A.
== END ==
PROVIDERS: PCP Family Medicine; Visit Provider Nurse Practitioner Family
DX: Z12.31 Encounter for screening mammogram for malignant neoplasm of breast (principal)
CPT/HCPCS: 77063; 77067

== ENCOUNTER 2024-02-27 15:23 | Outpatient (CLI) | payer BC, SELFPAY ==
--- NOTE | ~2024-02-27 | MM_ITS ---
EXAMINATION: MM screening michael BI w vaishali HISTORY: Screening mammogram, family history of breast cancer in her sister. TECHNIQUE: Craniocaudal and mediolateral oblique 3-D tomosynthesis images were obtained and synthetic 2-D images were generated. CAD analysis was submitted and interpreted. COMPARISON: 02/22/2023, 01/12/2022, 03/21/2020 BREAST PARENCHYMAL COMPOSITION:Not Dense. The breasts are almost entirely fatty FINDINGS: Stable benign right breast calcifications. No suspicious mass, calcification, or architectu ral distortion are identified in either breast to suggest malignancy. There has been no suspicious in terval change. IMPRESSION: No mammographic evidence of malignancy. Recommend routine screening mammography in one year. BI-RADS Category 2: Benign finding(s). Reviewed, dictated and finalized at location .
== END 2024-02-27 15:24 | disposition home or self-care (01) ==
LOC: ANHIMG 15:32
PROVIDERS: PCP Family Medicine; Visit Provider Nurse Practitioner
DX: Z12.31 Encounter for screening mammogram for malignant neoplasm of breast (principal)
CPT/HCPCS: 77063; 77067

== ENCOUNTER 2025-06-14 10:59 | Outpatient (CLI) | payer OTHER, SELFPAY ==
--- NOTE | ~2025-06-14 | MM_ITS ---
EXAMINATION: MM screening michael BI w vaishali HISTORY: Screening TECHNIQUE: Craniocaudal and mediolateral oblique 3-D tomosynthesis images were obtained and synthetic 2-D images were generated. CAD analysis was submitted and interpreted. COMPARISON: 02/27/2024 BREAST PARENCHYMAL COMPOSITION: Not Dense: The breasts are almost entirely fatty. FINDINGS: There is no evidence of suspicious mass, calcification, or architectural distortion to suggest malignancy. There has been no suspicious interval change. IMPRESSION: 1. No mammographic evidence of malignancy. Recommend routine screening mammography in one year. BI-RADS Category 2: Benign finding(s) Reviewed, dictated and finalized at location Q. IMPRESSION: 1. No mammographic evidence of malignancy. Recommend routine screening mammogra phy in one year. BI-RADS Category 2: Benign finding(s)
== END 2025-06-14 11:00 | disposition home or self-care (01) ==
LOC: MICIMG 11:00
PROVIDERS: PCP Nurse Practitioner; Visit Provider Nurse Practitioner
DX: Z12.31 Encounter for screening mammogram for malignant neoplasm of breast (principal)
CPT/HCPCS: 77063; 77067